=== PATIENT | male | born 1965 | race Caucasian/White ===

== ENCOUNTER → 2016-06-17 | Outpatient (CLI) | payer MEDICARE, BC ==
[2016-06-17 15:56] VITALS: BP 117/74; PULSE 68; RESP 16; TEMP 98.2; BMI 33.0
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
== END | disposition home or self-care (01) ==
LOC: BARWHC3 15:05
PROVIDERS: ATTEND Surgery
DX: Z71.3 Dietary counseling and surveillance (principal); E66.01 Morbid (severe) obesity due to excess calories; Z68.33 Body mass index [BMI] 33.0-33.9, adult; K21.9 Gastro-esophageal reflux disease without esophagitis; Z48.815 Encounter for surgical aftercare following surgery on the digestive system
CPT/HCPCS: 97803; G0463; 99211

== ENCOUNTER → 2016-09-02 | Outpatient (CLI) | payer MEDICARE ==
[2016-09-02 14:09] VITALS: BP 115/70; PULSE 56; RESP 16; TEMP 98.3; BMI 31.6
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
== END ==
LOC: BARWHC3 13:16
PROVIDERS: ATTEND Surgery
DX: Z48.815 Encounter for surgical aftercare following surgery on the digestive system (principal); E66.01 Morbid (severe) obesity due to excess calories; Z98.84 Bariatric surgery status; Z87.891 Personal history of nicotine dependence
CPT/HCPCS: 97803; G0463; 99211

== ENCOUNTER 2017-06-27 08:40 | Day surgery (SDC) | payer MEDICARE ==
[2017-06-24 15:50] VITALS: BMI 29.5
[~2017-06-27 08:40] MED LIST: LACTATED RINGERS 1,000 ML IV SCH; LIDOCAINE 1% INJ 10MG/ML (20 ML MDV) ONE; PROPOFOL 10 MG/ML 20 ML VIAL IV ONE
[2017-06-27 08:48] VITALS: TEMP 97
[2017-06-27] MEDS ORDERED: PROPOFOL 10 MG/ML 20 ML VIAL IV ONE (09:02)
[2017-06-27] MEDS ORDERED: LIDOCAINE 1% INJ 10MG/ML (20 ML MDV) ONE (09:02)
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
--- NOTE | 2017-06-27 09:24 | P.OP ---
Date of Procedure: 06/27/17 Preoperative Diagnosis: Dysphagia Postoperative Diagnosis: Mild antral gastritis Small hiatal hernia mild esophagitis Procedure(s) Performed: EGD Anesthesia: MAC Surgeon: Edwin Grady Pathology: other (Antrum, esophagus) Condition: stable Disposition: PACU Description of Procedure: The patient's placed on the endoscopy table in the lateral position. He received IV sedation. The gastroscope placed oropharynx and passed in the esophagus into the stomach. Scope was then placed through the pylorus. The first and second portion of the duodenum appeared normal. Scope was then brought back the antrum this was mildly inflamed. A biopsies performed. Scope was then brought back through the gastric sleeve. There is known to any obstruction or scarring of the sleeve. At the level GE junction appeared to be a small hiatal hernia. The distal esophagus appeared to be mildly inflamed. The GE junction was at 38 cm. The proximal esophagus appeared normal. Scope was withdrawn for patient.
[2017-06-27 09:35] VITALS: RESP 18
[2017-06-27 09:45] VITALS: BP 132/70; PULSE 67
== END 2017-06-27 10:17 | disposition home or self-care (01) ==
LOC: ORWHC2ENDO 08:40
PROVIDERS: ATTEND Surgery
DX: K29.50 Unspecified chronic gastritis without bleeding (principal); K44.9 Diaphragmatic hernia without obstruction or gangrene; K21.0 Gastro-esophageal reflux disease with esophagitis; E07.9 Disorder of thyroid, unspecified; E78.5 Hyperlipidemia, unspecified; I10 Essential (primary) hypertension; Z98.84 Bariatric surgery status; J44.9 Chronic obstructive pulmonary disease, unspecified; F17.200 Nicotine dependence, unspecified, uncomplicated; M19.90 Unspecified osteoarthritis, unspecified site; G47.33 Obstructive sleep apnea (adult) (pediatric); Z99.89 Dependence on other enabling machines and devices; Z79.1 Long term (current) use of non-steroidal anti-inflammatories (NSAID); Z79.899 Other long term (current) drug therapy; Z88.8 Allergy status to other drugs, medicaments and biological substances
CPT/HCPCS: 88305; 88342; 43239; J2001; J2704

== ENCOUNTER → 2017-07-07 | Outpatient (CLI) | payer MEDICARE ==
[2017-07-07 14:21] VITALS: BMI 30.7
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
== END | disposition home or self-care (01) ==
LOC: BARWHC3 13:42
PROVIDERS: ATTEND Surgery
DX: Z48.815 Encounter for surgical aftercare following surgery on the digestive system (principal); K95.09 Other complications of gastric band procedure; K21.9 Gastro-esophageal reflux disease without esophagitis; F17.200 Nicotine dependence, unspecified, uncomplicated; J44.9 Chronic obstructive pulmonary disease, unspecified; E78.5 Hyperlipidemia, unspecified; I10 Essential (primary) hypertension; E07.9 Disorder of thyroid, unspecified; M19.90 Unspecified osteoarthritis, unspecified site; G47.30 Sleep apnea, unspecified; F31.9 Bipolar disorder, unspecified; Z99.89 Dependence on other enabling machines and devices; Z98.84 Bariatric surgery status
CPT/HCPCS: 99211

== ENCOUNTER → 2019-01-25 | Outpatient (CLI) | payer MEDICARE ==
[2019-01-25 14:20] VITALS: BP 109/72; PULSE 51; TEMP 97.2; BMI 30.7
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
[2019-01-25 15:23] LABS: HCT 43.2 % (39.0-53.0); HGB 14.2 gm/dL (13.0-17.5); MCH 31.7 pg (25.0-35.0); MCHC 32.7 g/dL (31.0-37.0); MCV 96.7 fL (80.0-100.0); Mean Platelet Volume 6.9; Platelet Count 291 k/uL (150-450); RBC 4.47 m/uL (4.30-5.90); RDW 13.1 % (11.5-15.5); WBC 5.7 k/uL (3.8-10.6)
[2019-01-26 00:41] LABS: African American GFR (CKD) 87.7 (60.0-200.0); Albumin 4.3 g/dL (3.80-4.90); Albumin/Globulin Ratio 2.26 (1.60-3.17); Anion Gap 3.7 mmol/L (4.00-12.00); BUN/Creat Ratio 14.55 Ratio (12.00-20.00); Calcium 9.5 mg/dL (8.7-10.3); Carbon Dioxide 27.3 mmol/L (21.6-31.8); Globulin 1.9 g/dL (1.6-3.3); Potassium 4.8 mmol/L (3.5-5.5); Total Bilirubin 0.3 mg/dL (0.2-1.2); Total Protein 6.2 g/dL (6.2-8.2)
[2019-01-26 01:17] LABS: Vitamin D 25 Hydroxy 18.5 ng/mL (30.0-100.0)
[2019-01-26 01:19] LABS: Folate, Serum 8.9 ng/mL
== END | disposition home or self-care (01) ==
LOC: BARWHC3 13:54
PROVIDERS: ATTEND Surgery
DX: Z48.815 Encounter for surgical aftercare following surgery on the digestive system (principal); K21.9 Gastro-esophageal reflux disease without esophagitis; E55.9 Vitamin D deficiency, unspecified; Z98.84 Bariatric surgery status; Z98.890 Other specified postprocedural states
CPT/HCPCS: 84134; 84425; 80053; 82607; 82746; 85027; 82306; 83970; 36415; G0463; 99211

== ENCOUNTER → 2019-03-22 | Outpatient (CLI) | payer MEDICARE ==
--- NOTE | 2019-03-22 14:44 | XR ---
EXAMINATION TYPE: XR chest 2V DATE OF EXAM: 03/22/2019 COMPARISON: 09/28/2018 TECHNIQUE: PA and lateral views submitted. HISTORY: Shortness of breath FINDINGS: The lungs are clear and there is no pneumothorax, pleural effusion, or focal pneumonia. Hypertrophi c change of the spine. Hyperinflation of the lungs. No overt failure. IMPRESSION: 1. No acute process.
== END | disposition home or self-care (01) ==
LOC: RADXRMAIN 14:08
PROVIDERS: ATTEND Family Medicine
DX: R06.02 Shortness of breath (principal); R09.89 Other specified symptoms and signs involving the circulatory and respiratory systems
CPT/HCPCS: 71046

== ENCOUNTER → 2019-04-12 | Outpatient (CLI) | payer MEDICARE ==
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
[2019-04-12 16:10] VITALS: BP 130/84; PULSE 56; TEMP 98.2; BMI 30.4
== END | disposition home or self-care (01) ==
LOC: BARWHC3 12:52
PROVIDERS: ATTEND Surgery
DX: Z48.815 Encounter for surgical aftercare following surgery on the digestive system (principal); K21.9 Gastro-esophageal reflux disease without esophagitis; F17.200 Nicotine dependence, unspecified, uncomplicated; Z98.84 Bariatric surgery status
CPT/HCPCS: 99211

== ENCOUNTER → 2020-12-22 | Outpatient (CLI) | payer MEDICARE ==
--- NOTE | 2020-12-22 11:05 | CT ---
EXAMINATION TYPE: CT chest w con DATE OF EXAM: 12/22/2020 COMPARISON: Chest x-ray 05/20/2019 HISTORY: Hemoptysis CT DLP: 666 mGycm Automated exposure control for dose reduction was used. TECHNIQUE: CT scan of the chest is performed with IV Contrast, patient injected with 100 ml mL of Isovue 300. M IP Images are created on CT scanner and reviewed. 3D reconstructed images are created on an [employer] workstation and reviewed. FINDINGS: LUNGS: The lungs are grossly clear, there is no concerning parenchymal mass or nodule identified. T here is no pleural effusion or pneumothorax seen. The tracheobronchial tree is patent. Biapical pleu ral thickening and paraseptal emphysematous changes involving the lung apices. MEDIASTINUM: There are no greater than 1 cm hilar or mediastinal lymph nodes. No pericardial effusi on is seen. OTHER: Postsurgical change involving the stomach. Small hiatal hernia noted. Diffuse low-attenuation throughout the liver compatible with hepatic steatosis. Hypertrophic and degenerative changes of the spine. IMPRESSION: 1. COPD with no acute process. 2. Hepatic steatosis.
== END | disposition home or self-care (01) ==
LOC: RADCTMAIN 07:58
PROVIDERS: ATTEND Internal Medicine Critical Care Medicine
DX: J44.9 Chronic obstructive pulmonary disease, unspecified (principal); K76.0 Fatty (change of) liver, not elsewhere classified
CPT/HCPCS: 71260; Q9967

== ENCOUNTER 2021-04-05 07:30 | Day surgery (SDC) | payer MEDICARE ==
[2021-04-03 10:41] VITALS: BMI 35.2
[~2021-04-05 07:30] MED LIST changes: +LIDOCAINE 1% (10MG/ML) FOR IV START INTRADERMA PRN; -LIDOCAINE 1% INJ 10MG/ML (20 ML MDV) ONE; -PROPOFOL 10 MG/ML 20 ML VIAL IV ONE
[2021-04-05 08:33] VITALS: TEMP 97.2
[2021-04-05] MEDS ORDERED: PROPOFOL 10 MG/ML 20 ML VIAL IV ONE (09:02)
[2021-04-05] MEDS ORDERED: LIDOCAINE 1% INJ 10MG/ML (20 ML MDV) ONE (09:02)
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
--- NOTE | 2021-04-05 09:27 | P.OP ---
Date of Procedure: 04/05/21 Preoperative Diagnosis: GERD Screening colonoscopy Postoperative Diagnosis: Antral gastritis Normal colonoscopy Procedure(s) Performed: EGD Colonoscopy Anesthesia: MAC Surgeon: Edwin Grady Pathology: other (Antrum) Condition: stable Disposition: PACU Description of Procedure: The patient's placed on the endoscopy table in the lateral position. He received IV sedation. Digital rectal exam was performed which revealed no abnormalities. Possible colonoscope was then placed patient anus passed throughout the entire colon. The ileocecal valve was visualized. The cecum, ascending and transverse colon appeared normal. In the descending; there is moderate diverticular changes. Scope brought back the rectum and this appeared normal. Scope withdrawn for patient. Next the gastroscope placed oropharynx passed in the esophagus and the stomach. Scope placement pylorus. The first and second portion duodenum appeared normal. Scope was brought back the antrum this. Minimal inflamed. A biopsies performed. The scope was then brought back. Patient previous gastric sleeve. There is no evidence of any obstruction or occlusion of the sleeve. The GE junction was at 40 cm the distal esophagus. Normal. The proximal esophagus AppearedNormal. Scope withdrawn for patient.
[2021-04-05 09:31] VITALS: PULSE 68
[2021-04-05 09:55] VITALS: BP 112/75; RESP 19
== END 2021-04-05 10:20 | disposition home or self-care (01) ==
LOC: ORWHC2ENDO 07:30
PROVIDERS: ATTEND Surgery
DX: Z12.11 Encounter for screening for malignant neoplasm of colon (principal); K21.9 Gastro-esophageal reflux disease without esophagitis; K29.70 Gastritis, unspecified, without bleeding; J44.9 Chronic obstructive pulmonary disease, unspecified; E78.5 Hyperlipidemia, unspecified; I10 Essential (primary) hypertension; M19.90 Unspecified osteoarthritis, unspecified site; G47.33 Obstructive sleep apnea (adult) (pediatric); E07.9 Disorder of thyroid, unspecified; G43.909 Migraine, unspecified, not intractable, without status migrainosus; F31.9 Bipolar disorder, unspecified; F41.9 Anxiety disorder, unspecified; Z98.84 Bariatric surgery status; Z98.890 Other specified postprocedural states; F17.200 Nicotine dependence, unspecified, uncomplicated; Z82.49 Family history of ischemic heart disease and other diseases of the circulatory system; Z83.2 Family history of diseases of the blood and blood-forming organs and certain disorders involving the immune mechanism; Z90.79 Acquired absence of other genital organ(s); Z79.1 Long term (current) use of non-steroidal anti-inflammatories (NSAID); Z79.890 Hormone replacement therapy; Z79.51 Long term (current) use of inhaled steroids; Z79.899 Other long term (current) drug therapy; Z88.8 Allergy status to other drugs, medicaments and biological substances
CPT/HCPCS: 88305; 43239; J2001; J2704; G0121; 45378

== ENCOUNTER → 2021-04-26 | Outpatient (CLI) | payer MEDICARE ==
--- NOTE | 2021-04-26 16:06 | NM ---
Nuclear medicine hepatobiliary scan. HISTORY: Pain. DOSAGE: The patient received 8 ounces of ensure plus and 5.2 mCi of Technetium 99m Choletec. FINDINGS: There is normal hepatic extraction. The gallbladder is seen by 25 minutes. There is bilia ry to bowel clearance by 25 minutes. Ejection fraction is 92%. IMPRESSION: 1. No evidence of cholecystitis. 2. Ejection fraction of 92% can occasionally be seen with hyperdynamic gallbladder.
== END | disposition home or self-care (01) ==
LOC: RADNMMAIN 12:42
PROVIDERS: ATTEND Surgery
DX: R10.9 Unspecified abdominal pain (principal)
CPT/HCPCS: 78227; A9537; J2805

== ENCOUNTER 2021-05-11 06:26 | Day surgery (SDC) | payer MEDICARE ==
[2021-05-09 15:57] VITALS: BMI 34.4
[~2021-05-11 06:26] MED LIST changes: +ACETAMINOPHEN TAB 500 MG TAB PO PRN; +DEXAMETHASONE SOD PHOSPHATE 4 MG/ML 1 ML VIAL IV ONE; +HEPARIN SODIUM,PORCINE/PF 5,000 UNIT/0.5 ML SYRINGE SQ PRN; -LACTATED RINGERS 1,000 ML IV SCH; -LIDOCAINE 1% (10MG/ML) FOR IV START INTRADERMA PRN; +MIDAZOLAM 2 MG/2 ML VIAL IV PRN; +ONDANSETRON 4 MG/2 ML VIAL IVP ONE; +SCOPOLAMINE 1.5MG/72HR PATCH TRANSDERM ONE
[2021-05-11] MEDS ORDERED: HYDROmorphone 0.5 MG/0.5 ML SYRINGE IVP PRN (07:00)
[2021-05-11 07:06] VITALS: TEMP 97
[2021-05-11] MEDS ORDERED: LIDOCAINE 1% (10MG/ML) FOR IV START INTRADERMA ONE (07:20)
[2021-05-11] MEDS: LACTATED RINGERS 1,000 ML IV SCH ×2 (07:20→07:56)
[2021-05-11] MEDS ORDERED: PROPOFOL 10 MG/ML 20 ML VIAL IV ONE (07:55)
[2021-05-11] MEDS ORDERED: LIDOCAINE 1% INJ 10MG/ML (20 ML MDV) ONE (07:55)
[2021-05-11] MEDS ORDERED: ROCURONIUM 10 MG/ML (5 ML VIAL) IV ONE (07:55)
[2021-05-11] MEDS ORDERED: ALBUTEROL HFA INHALER INHALATION ONE (07:55)
[2021-05-11] MEDS ORDERED: .fentaNYL (PF) 50 MCG/ML AMP ONE (07:55)
[2021-05-11] MEDS ORDERED: GLYCOPYRROLATE 0.2 MG/ML 2 ML VIAL ONE (07:55)
[2021-05-11] MEDS ORDERED: NEOSTIGMINE 1 MG/ML 10 ML VIAL ONE (07:55)
[2021-05-11] MEDS ORDERED: BUPIVACAIN-EPI 0.25%-1:200,000 30 ML VIAL SQ ONE ×2 (08:18→08:25)
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
--- NOTE | 2021-05-11 08:51 | P.OP ---
Date of Procedure: 05/11/21 Preoperative Diagnosis: Chronic cholecystitis Postoperative Diagnosis: Chronic cholecystitis Procedure(s) Performed: Laparoscopic cholecystectomy Anesthesia: JOSHUA Surgeon: Edwin Grady Estimated Blood Loss (ml): 5 Pathology: other (Gallbladder) Condition: stable Disposition: PACU Description of Procedure: The patient was placed on the operating table. The patient received a general endotracheal tube anesthesia. The patients abdomen was prepped and draped in the usual sterile fashion. Through an infraumbilical stab incision, the fascia of the anterior abdominal wall was grasped with a pair of Kochers and then the Veress needle was placed in the peritoneal cavity. Position of the Veress needle was confirmed with positive drop test. The abdomen was then insufflated. After adequate insufflation, the 10 mm trocar was placed in the peritoneal cavity. Following this the laparoscope was placed in the peritoneal cavity. The patient was placed in the head-up, right side up position and then a 5 mm trocar was placed in the right lateral and right subcostal position under direct visualization. A 8 mm trocar was placed in the epigastric position. The gallbladder was grasped in the fundus and infundibulum. Traction on the gallbladder was placed in the lateral and the cephalad positions. The triangle of Calot was visualized.. The cystic duct was bluntly dissected until the union of the cystic duct and common bile duct was seen. A critical view of safety was achieved. The cystic duct was then divided and sealed with the Harmonic scissors. A PDS Endoloop was then placed throughout the cystic duct stump. The cystic artery divided and sealed with the Harmonic scissors. The gallbladder was then removed from the liver bed using Harmonic scissors. The gallbladder was then extracted through the epigastric port site. Operative field was checked for any bleeding spots and Harmonic scissors was used to coagulate the liver bed. The abdomen was irrigated. The trocars were removed. The skin was closed using interrupted 3-0 Vicryl suture. Dermabond dressing were applied. The patient tolerated the procedure well.
[2021-05-11] MEDS ORDERED: LACTATED RINGERS 1,000 ML IV ONE ×2 (09:22)
[2021-05-11 10:35] VITALS: RESP 16
[2021-05-11 11:23] VITALS: BP 123/76; PULSE 67
== END 2021-05-11 11:32 | disposition home or self-care (01) ==
LOC: OR 06:26
PROVIDERS: ATTEND Surgery
DX: K81.1 Chronic cholecystitis (principal)
CPT/HCPCS: 47562; 88304; J1100; J2710; J0690; J2405; J2001; J3010; J2704; J1644

== ENCOUNTER → 2021-08-08 | Outpatient (CLI) | payer MEDICARE ==
--- NOTE | 2021-08-08 15:01 | P.PN ---
Progress Note - Text Progress Note Date: 08/08/21 Patient registered under wrong physician.
[2021-08-08 18:58] LABS: HCT 44.5 % (39.6-50.0); HGB 13.8 g/dL (13.0-17.0); MCH 31.2 pg (27.0-32.0); MCV 100.7 fL (80.0-97.0); Mean Platelet Volume 9.4 fL (9.5-12.2); NRBC Per 100 WBC 0 /100 WBCS (0.0-0.0); Platelet Count 279 X 10*3/uL (140-440); RBC 4.42 X 10*6/uL (4.40-5.60); RDW 13.9 % (11.5-14.5); WBC 8.18 X 10*3/uL (4.50-10.00)
[2021-08-08 19:29] LABS: % Iron Saturation 21.45 (15.00-50.00); African American GFR (CKD) 86.5 (60.0-200.0); Albumin 4.2 g/dL (3.8-4.9); Albumin/Globulin Ratio 1.83 (1.60-3.17); Anion Gap 11.3 mmol/L (10.00-18.00); BUN/Creat Ratio 12.27 Ratio (12.00-20.00); Blood Urea Nitrogen 13.5 mg/dL (9.0-27.0); Calcium 9.8 mg/dL (8.7-10.3); Carbon Dioxide 23.7 mmol/L (20.0-27.5); Ferritin 55.7 ng/mL (22.0-322.0); Globulin 2.3 g/dL (1.6-3.3); Magnesium 2.1 mg/dL (1.5-2.4); Non-African American GFR(CKD) 74.6 (60.0-200.0); Potassium 4.9 mmol/L (3.5-5.5); Total Bilirubin 0.2 mg/dL (0.30-1.20); Total Protein 6.5 g/dL (6.2-8.2)
[2021-08-08 21:59] LABS: Folate, Serum 5.7 ng/mL (4.40-31.00)
[2021-08-09 13:09] LABS: Zinc, Serum 90 ug/dL (60-130)
[2021-08-10 06:48] LABS: Vitamin A 79 ug/dL (38-106)
[2021-08-10 17:17] LABS: Selenium 133 mcg/L (63-160)
[2021-08-12 13:17] LABS: Vit B1(Thiamine) 72 ug/L (38-122)
== END | disposition home or self-care (01) ==
LOC: BARWHC3 14:04
PROVIDERS: ATTEND Surgery Plastic and Reconstructive Surgery
DX: E66.01 Morbid (severe) obesity due to excess calories (principal); E44.0 Moderate protein-calorie malnutrition; E55.9 Vitamin D deficiency, unspecified; T56.894A Toxic effect of other metals, undetermined, initial encounter; D50.8 Other iron deficiency anemias
CPT/HCPCS: 36415; 80053; 82306; 82607; 82728; 82746; 83540; 83550; 83735; 84255; 84425; 84443; 84590; 84630; 85027

== ENCOUNTER → 2022-03-28 | Outpatient (CLI) | payer MEDICARE ==
--- NOTE | 2022-03-28 10:02 | FL ---
EXAMINATION TYPE: FL barium swallow DATE OF EXAM: 03/28/2022 CLINICAL HISTORY: Dysphagia. Food and water getting stock causing vomiting. History of gastric sleeve surgery 6 years ago. TECHNIQUE: A single contrast esophagram is performed utilizing barium. A total of 53 seconds of flu oroscopic time was utilized during procedure and 42 images obtained COMPARISON: Prior upper GI study January 09, 2016 FINDINGS: The esophagus shows satisfactory motility. There is pooling of contrast in the esophagus in itially before some delayed emptying into fixed hiatal hernia. There are then some abnormal secondary and tertiary contractions with delayed emptying through proximal anastomosis into the gastric sleeve . Gastric sleeve appears within normal limits. There is again mild to moderate delayed emptying throu gh distal anastomosis into duodenal sweep. No extravasation of contrast to suggest leak. IMPRESSION: Some esophageal dysmotility. Fixed small hiatal hernia proximal to the proximal anastomos is with mild delayed emptying at this level. Mild to moderate delayed emptying at proximal and distal anastomosis of gastric sleeve also noted.
== END | disposition home or self-care (01) ==
LOC: RADUSWWP 08:53
PROVIDERS: ATTEND Family Medicine
DX: K22.4 Dyskinesia of esophagus (principal); K44.9 Diaphragmatic hernia without obstruction or gangrene
CPT/HCPCS: 74220

== ENCOUNTER → 2022-05-20 | Outpatient (CLI) | payer MEDICARE ==
--- NOTE | 2022-05-20 13:59 | MR ---
EXAMINATION TYPE: MR knee LT wo con DATE OF EXAM: 05/20/2022 COMPARISON: None HISTORY: PAIN IN LEFT KNEE TECHNIQUE: Multiplanar, multisequence imaging of the left knee is performed without IV contrast. FINDINGS: MEDIAL MENISCUS: Anterior and posterior horns are intact without tear. Myxoid degeneration posterior horn medial meniscus. LATERAL MENISCUS: Anterior and posterior horns are intact without tear. CRUCIATE LIGAMENTS: The anterior and posterior cruciate ligaments are intact and unremarkable. COLLATERAL LIGAMENTS: The medial collateral ligament and lateral collateral ligament complex are inta ct and unremarkable. EXTENSOR MECHANISM: Visualized quadriceps and patellar tendons are intact. EFFUSION: No significant suprapatellar joint effusion. POPLITEAL CYST: No popliteal/segovia cyst. TRICOMPARTMENT SPACES: Mild narrowing patellofemoral joint space and medial tibiofemoral joint space. CARTILAGE: Intact BONE MARROW SIGNAL: No focal abnormal marrow signal is appreciated. OTHER: No additional significant abnormality is appreciated. IMPRESSION: 1. Mild changes of osteoarthritis. 2. Myxoid degeneration posterior horn medial meniscus without evidence for tear.
== END | disposition home or self-care (01) ==
LOC: RADMRIMAIN 12:59
PROVIDERS: ATTEND Orthopaedic Surgery
DX: M17.12 Unilateral primary osteoarthritis, left knee (principal)

== ENCOUNTER → 2022-06-24 | Outpatient (CLI) | payer MEDICARE ==
--- NOTE | 2022-06-24 14:28 | MR ---
INDICATION: Patient age:Male; 57 years old; Reason for study: M25.561 PAIN IN RIGHT KNEE; PHH. COMPARISON: Right knee radiograph 04/09/2022. TECHNIQUE: Multi planar, multi sequence imaging was performed of the right knee without demonstratio n of gadolinium. FINDINGS: MENISCI: Longitudinal tear involving the body of the lateral meniscus extending to the tibiotalar art icular surface. No medial meniscus tear. Myxoid degeneration demonstrated within the body of the medi al meniscus. LIGAMENTS AND TENDONS: The anterior cruciate ligament, posterior cruciate ligament, medial collatera l ligament, fibular collateral ligament, and patellar retinacula are within normal limits. The ackerman lar tendon, quadriceps tendon, IT band, pes anserinus tendons, semimembranosus tendon, popliteus tend on, and biceps femoris tendon are all within normal limits. OSSEOUS STRUCTURES AND CARTILAGE: The cartilage of the patellofemoral joint and medial tibiofemoral joint demonstrates areas of heterogeneous signal. There is some fissuring along the anterior aspect o f the medial patellofemoral femoral joint space cartilage with subchondral cystic formation. The cart ilage of the lateral knee joint compartment is intact. The bone marrow signal intensity is within no rmal limits. A trace suprapatellar joint effusion is present. Lateral right knee subcutaneous edema. IMPRESSION: 1. Lateral meniscal body tear with myxoid degeneration of the medial meniscus. 2. Mild chondromalacia of the patellofemoral and medial tibiofemoral joints.
== END | disposition home or self-care (01) ==
LOC: RADMRIMAIN 11:20
PROVIDERS: ATTEND Orthopaedic Surgery
DX: M23.300 Other meniscus derangements, unspecified lateral meniscus, right knee (principal); M23.303 Other meniscus derangements, unspecified medial meniscus, right knee; M22.41 Chondromalacia patellae, right knee

== ENCOUNTER 2022-08-29 08:42 | Day surgery (SDC) | payer MEDICARE ==
[~2022-08-29 08:42] MED LIST changes: -ACETAMINOPHEN TAB 500 MG TAB PO PRN; -DEXAMETHASONE SOD PHOSPHATE 4 MG/ML 1 ML VIAL IV ONE; -HEPARIN SODIUM,PORCINE/PF 5,000 UNIT/0.5 ML SYRINGE SQ PRN; +LACTATED RINGERS 1,000 ML IV SCH; +LIDOCAINE 1% (10MG/ML) FOR IV START INTRADERMA PRN; -MIDAZOLAM 2 MG/2 ML VIAL IV PRN; -ONDANSETRON 4 MG/2 ML VIAL IVP ONE; -SCOPOLAMINE 1.5MG/72HR PATCH TRANSDERM ONE
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
[2022-08-29 09:16] VITALS: RESP 16; TEMP 98
[2022-08-29] MEDS ORDERED: PROPOFOL 10 MG/ML 20 ML VIAL IV ONE (09:25)
[2022-08-29] MEDS ORDERED: LIDOCAINE 2% INJ 20 MG/ML (2 ML VIAL) ONE (09:25)
[2022-08-29 10:13] VITALS: BP 108/76; PULSE 50
--- NOTE | 2022-08-29 11:21 | P.PCN ---
Date of Procedure: 08/29/22 Description of Procedure: PREOPERATIVE DIAGNOSIS: Dysphagia. Gastroesophageal reflux disease. s/p sleeve gastrectomy. POSTOPERATIVE DIAGNOSIS: Dysphagia. Gastroesophageal reflux disease. s/p vertical sleeve gastrectomy. Esophageal dysmotility Diaphragmatic hiatal hernia Gastritis OPERATION: Esophagogastroduodenoscopy with rigid dilation, 57-[place] Esophagogastroduodenoscopy with cold forceps biopsy SURGEON: Michelle Nam MD ANESTHESIA: MAC. INDICATIONS: The patient is a 57-year-old male who presents with a history of dysphagia, sleeve gastrectomy including gastroesophageal reflux disease. Benefits and risks of the procedure were described. Informed consent was obtained. DESCRIPTION: The patient was brought into the endoscopy suite and laid in the left lateral decubitus position. After a timeout was confirmed, the procedure was initiated. An Olympus gastroscope was passed along the posterior oropharynx down to the distal esophagus where the squamocolumnar junction was remarkable for reflux esophagitis. Multiple tertiary esophageal contractions were identified consistent with esophageal dysmotility. No large hiatal hernias were identified. The gastric pouch was entered. No gastric strictures were identified along her sleeve. The antrum was unremarkable. The scope was brianna reji as a guidewire was placed. A guidewire followed by 57-[place] with rigid dilator for 2 minutes. Dilators were removed with guidewire. The upper scope was reinserted. The scope was easily passed without resistance consistent with her esophageal dysmotility. The mucosa was intact. No full-thickness injury was encountered. The GI tract was desufflated. The patient tolerated the procedure well. FINDINGS: No strictures identified. Tertiary esophageal contractions present with esophageal dysmotility dilated Diaphragmatic hiatus at 44 cm Dilated gastric pouch for sleeve gastrectomy identified Diaphragmatic hiatal hernia, 4 cm Squamocolumnar junction at 40 cm Gastritis with biopsies obtained Duodenitis with biopsies obtained RECOMMENDATIONS: Upper endoscopy as needed Plan - Discharge Summary Discharge Rx Participant: No New Discharge Prescriptions: Continue lamoTRIgine [LaMICtal] 100 mg PO DAILY clonazePAM [KlonoPIN] 1 mg PO TID PRN PRN Reason: Anxiety [place] Carbonate ER [Lithobid] 450 mg PO BID OLANZapine [ZyPREXA] 5 mg PO HS Citalopram Hydrobromide [CeleXA] 20 mg PO DAILY@1700 Ipratropium-Albuterol Nebulize [Duoneb 0.5 mg-3 mg/3 ml Soln] 3 ml INHALATION QID PRN PRN Reason: COPD Simvastatin [Zocor] 20 mg PO HS Meloxicam [Mobic] 15 mg PO DAILY Levothyroxine Sodium [Synthroid] 137 mcg PO QAM Fluticasone/Umeclidin/Vilanter [Trelegy Ellipta 100-62.5-25] 1 inhalation INHALATION DAILY Omeprazole [PriLOSEC] 40 mg PO HS HYDROcodone/APAP 5-325MG [[place] 5-325] 1 tab PO Q6HR PRN #12 tab PRN Reason: Pain Albuterol Inhaler [Ventolin Hfa Inhaler] 2 puff INHALATION RT-QID PRN PRN Reason: Shortness Of Breath Ascorbic Acid [Vitamin C] 500 mg PO HS PRN PRN Reason: Cough Acetaminophen Tab [Tylenol] 650 mg PO Q6H #30 tab Albuterol Nebulized [Ventolin Nebulized] 2.5 mg INHALATION Q6H Discharge Medication List Citalopram Hydrobromide [CeleXA] 20 mg PO DAILY@1700 12/14/15 [History] [place] Carbonate ER [Lithobid] 450 mg PO BID 12/14/15 [History] OLANZapine [ZyPREXA] 5 mg PO HS 12/14/15 [History] clonazePAM [KlonoPIN] 1 mg PO TID PRN 12/14/15 [History] lamoTRIgine [LaMICtal] 100 mg PO DAILY 12/14/15 [History] Ipratropium-Albuterol Nebulize [Duoneb 0.5 mg-3 mg/3 ml Soln] 3 ml INHALATION QID PRN 12/29/15 [History] Levothyroxine Sodium [Synthroid] 137 mcg PO QAM 06/24/17 [History] Meloxicam [Mobic] 15 mg PO DAILY 06/24/17 [History] Simvastatin [Zocor] 20 mg PO HS 06/24/17 [History] Albuterol Inhaler [Ventolin Hfa Inhaler] 2 puff INHALATION RT-QID PRN 04/03/21 [History] Ascorbic Acid [Vitamin C] 500 mg PO HS PRN 04/03/21 [History] Fluticasone/Umeclidin/Vilanter [Trelegy Ellipta 100-62.5-25] 1 inhalation INHALATION DAILY 04/03/21 [History] Omeprazole [PriLOSEC] 40 mg PO HS 04/03/21 [History] Acetaminophen Tab [Tylenol] 650 mg PO Q6H #30 tab 05/11/21 [Rx] HYDROcodone/APAP 5-325MG [[place] 5-325] 1 tab PO Q6HR PRN #12 tab 07/31/22 [Rx] Albuterol Nebulized [Ventolin Nebulized] 2.5 mg INHALATION Q6H 08/27/22 [History] Follow up [facility]ment(s[facility]Ref[facility] [place] [facility] 10[facility]02/22 3:00 pm Patient Instructions/Handouts: *Surgery [facility] - (Anesthesia) Endoscopy Discharge Instructions, Hiatal Hernia (DC), Upper Endoscopy (DC), Esophageal Dilation (GEN) Activity/Diet/Wound Care/Special Instructions: Diet as tolerated Discharge Disposition: HOME SELF-CARE
== END 2022-08-29 11:09 | disposition home or self-care (01) ==
LOC: ORWHC2ENDO 08:42
PROVIDERS: ATTEND Surgery Plastic and Reconstructive Surgery
DX: K21.9 Gastro-esophageal reflux disease without esophagitis (principal); K22.4 Dyskinesia of esophagus; K44.9 Diaphragmatic hernia without obstruction or gangrene; K29.70 Gastritis, unspecified, without bleeding; J44.9 Chronic obstructive pulmonary disease, unspecified; E78.5 Hyperlipidemia, unspecified; I10 Essential (primary) hypertension; M19.90 Unspecified osteoarthritis, unspecified site; G47.30 Sleep apnea, unspecified; F17.200 Nicotine dependence, unspecified, uncomplicated; Z90.49 Acquired absence of other specified parts of digestive tract; Z90.79 Acquired absence of other genital organ(s); Z79.899 Other long term (current) drug therapy
CPT/HCPCS: 88305; 43239; 43248; J2704; J2001; 43249

== ENCOUNTER → 2022-10-02 | Outpatient (CLI) | payer MEDICARE ==
[2022-10-02 16:04] VITALS: BP 123/81; PULSE 54; TEMP 98; BMI 31.3
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
== END ==
LOC: BARWHC3 14:50
PROVIDERS: ATTEND Surgery Plastic and Reconstructive Surgery
DX: E66.01 Morbid (severe) obesity due to excess calories (principal); J44.9 Chronic obstructive pulmonary disease, unspecified; K21.9 Gastro-esophageal reflux disease without esophagitis; E78.5 Hyperlipidemia, unspecified; I10 Essential (primary) hypertension; M19.90 Unspecified osteoarthritis, unspecified site; F17.200 Nicotine dependence, unspecified, uncomplicated; Z88.8 Allergy status to other drugs, medicaments and biological substances
CPT/HCPCS: 99211

== ENCOUNTER → 2022-12-20 | Outpatient (CLI) | payer MEDICARE ==
[2022-12-20 20:07] LABS: Basophils # (A) 0.04 X 10*3/uL (0.00-0.10); Basophils % (A) 0.5 %; Eosinophils # (A) 0.06 X 10*3/uL (0.04-0.35); Eosinophils % (A) 0.8 %; HCT 45.7 % (39.6-50.0); HGB 14.1 d/dL (12.0-15.0); Lymphocytes # (A) 0.59 X 10*3/uL (0.90-5.00); Lymphocytes % (A) 7.5 %; MCH 31.8 pg (27.0-32.0); MCHC 30.9 d/dL (32.0-37.0); MCV 102.9 FL (80.0-97.0); Mean Platelet Volume 9.7 FL (9.5-12.2); Monocytes # (A) 0.22 X 10*3/uL (0.20-1.00); Monocytes % (A) 2.8 %; NRBC Per 100 WBC 0 X 10*3/uL (0.00-0.01); Neutrophils # (A) 6.96 X 10*3/uL (1.80-7.70); Neutrophils % (A) 88.3 %; Platelet Count 327 X 10*3/uL (140-440); RBC 4.44 X 10*6/uL (4.40-5.60); RDW 14.1 % (11.5-14.5); WBC 7.88 X 10*3/uL (4.50-10.00)
[2022-12-20 20:16] LABS: ALT 23 U/L (10-49); AST 17 U/L (14-35); Albumin 4.3 d/dL (3.8-4.9); Albumin/Globulin Ratio 1.87 Ratio (1.60-3.17); Alkaline Phosphatase 104 U/L (41-126); BUN/Creat Ratio 16.54 Ratio (12.00-20.00); Blood Urea Nitrogen 21.5 mg/dL (9.0-27.0); C Reactive Protein <0.30 mg/dL (0.00-0.80); Calcium 9.8 mg/dL (8.7-10.3); Carbon Dioxide 23.4 mmol/L (21.6-31.8); Chloride 106 mmol/L (96-109); Chol/HDL Ratio 3.32 Ratio; Globulin 2.3 d/dL (1.6-3.3); Glucose 122 mg/dL (70-110); LDL Cholesterol,Calculated 85.4 mg/dL (0.0-131.0); Potassium 5.1 mmol/L (3.5-5.5); Rheumatoid Factor, Qnt 127 IU/mL (0-15); Sodium 138 mmol/L (135-145); T4, Free (Free Thyroxine) 1.46 ng/dL (0.80-1.80); Total Bilirubin 0.2 mg/dL (0.3-1.2); Total Protein 6.6 d/dL (6.2-8.2)
[2022-12-20 22:17] LABS: Erythrocyte Sedimentation Rate 13 mm/Hr (0-20)
[2022-12-20 23:47] LABS: Prostate Specific Antigen 0.05 ng/mL (0.000-3.500)
== END | disposition home or self-care (01) ==
LOC: LABWHC1 12:36
PROVIDERS: ATTEND Orthopaedic Surgery
DX: Z01.812 Encounter for preprocedural laboratory examination (principal); M23.92 Unspecified internal derangement of left knee
CPT/HCPCS: 36415; 80053; 80061; 80178; 84153; 84439; 84443; 85025; 85652; 86038; 86140; 86431

== ENCOUNTER → 2022-12-20 | Outpatient (CLI) | payer MEDICARE | END | disposition home or self-care (01) | LOC: LABWHC1 12:39 | PROVIDERS: ATTEND Family Medicine | DX: Z53.9 Procedure and treatment not carried out, unspecified reason (principal) ==

== ENCOUNTER 2023-01-01 10:21 | Day surgery (SDC) | payer MEDICARE ==
[2022-12-27 10:36] VITALS: BMI 31.3
--- NOTE | 2022-12-31 14:34 | HP ---
HISTORY AND PHYSICAL DATE OF SCHEDULED SURGERY: 01/01/2023 HISTORY OF PRESENT ILLNESS: Aron Campbell is a 57-year-old patient seen with progressive left knee pain. We discussed options for treatment. The patient elected to proceed with left knee arthroscopy. Consent regarding procedure obtained. PAST MEDICAL HISTORY: Hypothyroidism, gastroesophageal reflux disease, hyperlipidemia. PAST SURGICAL HISTORY: Right knee arthroscopy. DAILY MEDICATIONS: 1. Klonopin. 2. Levothyroxine. 3. Meloxicam. 4. Omeprazole. 5. Simvastatin. 6. Tylenol. 7. Tramadol. ALLERGIES: None. SOCIAL HISTORY: He denies tobacco use. PHYSICAL EVALUATION OF THE LEFT KNEE: Left knee range of motion is -4/5 to 120 degrees. Mild effusion. Tenderness medial joint line. Positive medial Sven's. Ligaments stable. Hip rotation without pain. Distal neurovascular exam is intact. RADIOGRAPHS: Right knee radiographs revealed moderate osteoarthritic changes. MRI of the left knee revealed an abnormal signal throughout the medial meniscus. IMPRESSION: 1. Internal derangement of left knee with medial meniscal tear. 2. Hypertension. 3. Hyperlipidemia. 4. Hypothyroidism. PLAN: Left knee arthroscopy with partial medial meniscectomy and debridement. MMODL / IJN: [id number] /
[~2023-01-01 10:21] MED LIST changes: +DEXAMETHASONE SOD PHOSPHATE 4 MG/ML 1 ML VIAL IV ONE; +HYDROmorphone 0.5 MG/0.5 ML SYRINGE IVP PRN; +ONDANSETRON 4 MG/2 ML VIAL IVP ONE; +SCOPOLAMINE 1 MG/72 HR PATCH TRANSDERM ONE; +droPERidol 5 MG/2 ML VIAL IVP ONE
[2023-01-01 10:52] LABS: Glucose,Whole Blood 123 mg/dL (70-110)
[2023-01-01] MEDS ORDERED: PROPOFOL 10 MG/ML 20 ML VIAL IV ONE (11:31)
[2023-01-01] MEDS ORDERED: LIDOCAINE 2% INJ 20 MG/ML (2 ML VIAL) ONE (11:31)
[2023-01-01] MEDS ORDERED: fentaNYL (PF) 50 MCG/ML 2 ML AMP ONE (11:31)
[2023-01-01] MEDS ORDERED: BUPIVACAINE (PF) 0.25% 30 ML VIAL SQ ONE ×2 (11:52→12:00)
--- NOTE | 2023-01-01 12:14 | P.OP ---
Date of Procedure: 01/01/23 Preoperative Diagnosis: Internal derangement left knee Postoperative Diagnosis: 1. Tear medial and lateral meniscus left knee 2. Grade 3/4 chondromalacia medial femoral condyle left knee 3. Reactive synovitis medial, lateral and suprapatellar compartments left knee Procedure(s) Performed: 1. Arthroscopic partial medial and lateral meniscectomy left knee 2. Arthroscopic microfracture medial femoral condyle left knee 3. Arthroscopic partial synovectomy medial, lateral and suprapatellar compartments left knee 4. Arthroscopic chondroplasty medial femoral condyle left knee Anesthesia: RONAA, local Surgeon: Paul Knutson Estimated Blood Loss (ml): 7 Pathology: none sent Condition: stable Disposition: PACU Indications for Procedure: 57-year-old gentleman seen with progressive left knee pain. After having treatment options discussed, he elected to proceed with arthroscopy. Operative Findings: See description of procedure Description of Procedure: Patient was taken to the operative suite. Patient underwent a general anesthetic by the department of anesthesia. Patient was given preoperative antibiotics. The left lower extremity was placed in a well-padded arthroscopic leg mejia. The left leg was prepped and draped in the normal sterile orthopedic fashion. A lateral parapatellar and suprapatellar incision was made. Trochars were inserted. Arthroscopy was initiated. Suprapatellar pouch revealed diffuse thick reactive synovitis. The patellofemoral joint appeared to articulate congruently. There was grade 1 chondromalacia of the patella without significant osteochondral tears. The scope was guided into the medial gutter. No loose bodies or plica were identified. The scope was then guided into the medial compartment. A medial parapatellar incision was made. Trocar inserted followed by probe. There was a radial tear involving the anterior horn of the medial meniscus along with thick reactive synovitis. The mid body and posterior horns were stable. There were areas of grade 2/3 chondromalacia medial femoral condyle with some diffuse osteochondral flap tears. I performed a partial synovectomy. I performed a partial meniscectomy debriding out that anterior horn meniscal tear. I performed a chondroplasty of the medial femoral condyle getting down to stable osteochondral tissue. I did note grade 3 chondral malacia diffuse along the medial femoral condyle with one small area measuring less than a centimeter of right 4 chondromalacia with exposed bone. I introduced a microfracture awl and performed a microfracture to the area of exposed bone penetrating the bone with resultant bleeding at the microfracture site. The residual meniscus was stable. There was good decompression of synovitis. The residual osteochondral surface was stable. Scope and probe were then guided into the intercondylar notch. Cruciates were identified, probed and found to be stable. The scope and probe were then guided into lateral compartment. There was a radial tear involving the midbody lateral meniscus. There was thick reactive synovitis anteriorly. He were grade 1 chondromalacia changes throughout the lateral compartment with no tears. I performed a partial lateral meniscectomy getting down to stable meniscal tissue. I performed a partial synovectomy decompressing the reactive synovitis. The residual meniscus was stable. There was good decompression of the synovitis. The scope was in guided back into the suprapatellar compartment. I introduced a motorized shaver into the suprapatellar compartment. I performed a partial synovectomy decompressing the reactive synovitis throughout the suprapatellar compartment. The shaver was now removed. There was good decompression of synovitis. I took one more look around the entire knee, no residual debris. Instruments were now removed from the joint. The joint was infiltrated with .25% Marcaine. Steri- Strips were applied to the portal sites. Sterile dressings were applied. The patient was placed into a YONNY hose. No tourniquet was utilized. The patient was awakened, transferred to a bed and taken to recovery stable satisfactory condition.
[2023-01-01 12:27] VITALS: TEMP 97.4
[2023-01-01 13:57] VITALS: BP 115/70; PULSE 60; RESP 18
== END 2023-01-01 14:24 | disposition home or self-care (01) ==
LOC: OR 10:21
PROVIDERS: ATTEND Orthopaedic Surgery
DX: S83.282A Other tear of lateral meniscus, current injury, left knee, initial encounter (principal); M94.262 Chondromalacia, left knee; M65.862 Other synovitis and tenosynovitis, left lower leg; I10 Essential (primary) hypertension; E03.9 Hypothyroidism, unspecified; E78.5 Hyperlipidemia, unspecified; K21.9 Gastro-esophageal reflux disease without esophagitis; Z79.899 Other long term (current) drug therapy
CPT/HCPCS: 29880; J1100; J0690; J2405; J3010; J2704; J2001

== ENCOUNTER → 2023-02-12 | Outpatient (CLI) | payer MEDICARE ==
--- NOTE | 2023-02-12 19:57 | CTL ---
EXAMINATION TYPE: CT Low Dose Lung DATE OF EXAM ORDERED: 02/12/2023 HISTORY: Z12.2 ENCNTR SCREEN FOR MALIGNANT NEOPLASM F12.210. Current smoker, 20 pack year history. Nelli ng cancer screening CT DLP: [address] CTDI: 2.79 mGy Automated exposure control for dose reduction was used. SCREENING VISIT: First screening visit COMPARISON: CT chest 12/22/2020 TECHNIQUE: Low dose computed tomography scan was performed through the chest at 1 mm thick sections a nd reconstructed images in multiple planes at 1 mm and [address] DIAGNOSTIC QUALITY: Satisfactory FINDINGS: LUNG NODULES: No clinically significant pulmonary nodules greater than 5 mm. Intrafissural lymph node measuring 3 mm along the right minor fissure. LUNGS: COPD: Severity: Mild Fibrosis: Severity: Minimal Lymph nodes: None Other findings: Elevation of the right hemidiaphragm. Diffuse bronchial wall thickening which can be seen with chronic asthma/bronchitis. RIGHT PLEURAL SPACE: Effusion: None Calcification: None Thickening: None Pneumothorax: None LEFT PLEURAL SPACE: Effusion: None Calcification: None Thickening: None Pneumothorax: None HEART: Heart Size: Normal Coronary Calcification: None Pericardial Effusion: None OTHER FINDINGS: Upper abdomen: Small hiatal hernia with postsurgical changes from gastric sleeve. Postcholecystectomy changes. Diffuse low-attenuation of the liver compatible with hepatic steatosis. Bony thorax: No acute processes. Mild degenerative disc disease of the thoracic spine. Supraclavicular region: None Other: Right gynecomastia. IMPRESSION: No clinically significant pulmonary nodule greater than [address] LUNG RAD AND CT CHEST RECOMMENDATION: Lung-Rad 2 Benign Appearance or Behavior: Continue annual sc reening with LDCT in 12 months. S Modifier (other clinically significant findings): None
== END | disposition home or self-care (01) ==
LOC: RADCTMAIN 16:40
PROVIDERS: ATTEND Internal Medicine Rheumatology
DX: Z12.2 Encounter for screening for malignant neoplasm of respiratory organs (principal); F17.210 Nicotine dependence, cigarettes, uncomplicated
CPT/HCPCS: 71271

== ENCOUNTER → 2023-06-11 | Outpatient (CLI) | payer MEDICARE ==
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
[2023-06-11 15:43] VITALS: BP 135/84; PULSE 65; TEMP 97.7; BMI 30.7
== END ==
LOC: BARWHC3 14:52
PROVIDERS: ATTEND Surgery Plastic and Reconstructive Surgery
DX: E66.01 Morbid (severe) obesity due to excess calories (principal); J44.9 Chronic obstructive pulmonary disease, unspecified; G43.909 Migraine, unspecified, not intractable, without status migrainosus; F32.A Depression, unspecified; G40.909 Epilepsy, unspecified, not intractable, without status epilepticus; E03.9 Hypothyroidism, unspecified; E78.5 Hyperlipidemia, unspecified; K21.9 Gastro-esophageal reflux disease without esophagitis; K44.9 Diaphragmatic hernia without obstruction or gangrene; T75.3XXA Motion sickness, initial encounter; M47.816 Spondylosis without myelopathy or radiculopathy, lumbar region; G47.33 Obstructive sleep apnea (adult) (pediatric); R10.11 Right upper quadrant pain; R10.12 Left upper quadrant pain; F17.200 Nicotine dependence, unspecified, uncomplicated; Z68.30 Body mass index [BMI] 30.0-30.9, adult; Z88.8 Allergy status to other drugs, medicaments and biological substances; Z79.899 Other long term (current) drug therapy; Z79.890 Hormone replacement therapy
CPT/HCPCS: 99211

== ENCOUNTER 2023-07-14 20:41 | Observation (INO) | payer MEDICARE ==
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
[2023-07-14 22:23] LABS: Basophils % (A) 0 %; Eosinophils # (A) 0.6 k/uL (0-0.7); Eosinophils % (A) 7 %; HCT 41.3 % (39.0-53.0); HGB 13.4 gm/dL (13.0-17.5); Lymphocytes # (A) 2.2 k/uL (1.0-4.8); Lymphocytes % (A) 26 %; MCH 32.3 pg (25.0-35.0); MCHC 32.4 g/dL (31.0-37.0); MCV 99.7 fL (80.0-100.0); Monocytes # (A) 0.5 k/uL (0-1.0); Monocytes % (A) 5 %; Neutrophils # (A) 5.1 k/uL (1.3-7.7); Neutrophils % (A) 59 %; Platelet Count 305 k/uL (150-450); RBC 4.14 m/uL (4.30-5.90); RDW 13.7 % (11.5-15.5); WBC 8.6 k/uL (3.8-10.6)
[2023-07-14] MEDS: MORPHINE SULFATE 4 MG/ML SYRINGE IV STA (22:24)
[2023-07-14] MEDS: MAG HYDROX/AL HYDROX/SIMETH 30 ML, HYOSCYAMINE ELIXIR 10 ML, LIDOCAINE VISCOUS 2% 10 ML PO STA (22:24)
[2023-07-14] MEDS: ASPIRIN 81 MG PO STA (22:24)
[2023-07-14 22:33] LABS: ALT 26 U/L (4-49); AST 25 U/L (17-59); African American GFR (CKD) 79 (>60 ml/min/1.73 sqM); Alkaline Phosphatase 91 U/L (38-126); Anion Gap 4 mmol/L; Blood Urea Nitrogen 21 mg/dL (9-20); Calcium 9.4 mg/dL (8.4-10.2); Carbon Dioxide 25 mmol/L (22-30); Chloride 108 mmol/L (98-107); Glucose 96 mg/dL (74-99); Magnesium 2.2 mg/dL (1.6-2.3); Non-African American GFR(CKD) 68 (>60 ml/min/1.73 sqM); Potassium 4.5 mmol/L (3.5-5.1); Sodium 137 mmol/L (137-145); Total Bilirubin 0.3 mg/dL (0.2-1.3); Total Protein 6.6 g/dL (6.3-8.2)
--- NOTE | 2023-07-14 22:35 | XR ---
EXAMINATION TYPE: XR chest 2V DATE OF EXAM: 07/14/2023 COMPARISON: Chest CT December 22, 2020 HISTORY: Chest pain TECHNIQUE: Frontal and lateral views of the chest are obtained. FINDINGS: There is no suspicious new focal air space opacity, pleural effusion, or pneumothorax seen . The cardiac silhouette size remains within normal limits. The osseous structures are intact. IMPRESSION: No acute process.
[2023-07-14 22:37] LABS: INR 0.9 (<1.2); Partial Thromboplastin Time 24.1 sec (22.0-30.0); Prothrombin Time 10.4 sec (10.0-12.5)
[2023-07-14] MEDS: ALBUTEROL NEBULIZED 2.5 MG/3 ML INHALATION STA (22:52)
[2023-07-14] MEDS ORDERED: NITROGLYCERIN SL TABS 0.4 MG TAB SUBLINGUAL PRN (23:36)
[2023-07-14] MEDS ORDERED: IPRATROPIUM 0.5 MG/2.5 ML NEBU INHALATION PRN (23:48)
[2023-07-14] MEDS: SODIUM CHLORIDE 0.9% 1,000 ML IV SCH (23:57)
[2023-07-15] MEDS: ACETAMINOPHEN TAB 325 MG TAB PO PRN (01:49)
[2023-07-15] MEDS: OLANZapine 5 MG TAB PO SCH (01:49)
[2023-07-15] MEDS: IPRATROPIUM-ALBUTEROL 3 ML NEB INHALATION PRN (01:59)
[2023-07-15] MEDS: LEVOTHYROXINE 137 MCG TAB PO SCH (06:37)
[2023-07-15] MEDS: LITHIUM CARBONATE ER 450 MG TABLET.ER PO SCH (08:18)
[2023-07-15] MEDS: ASPIRIN 325 MG TAB PO SCH (08:18)
[2023-07-15 08:50] LABS: Chol/HDL Ratio 2.87 Ratio; VLDL Calculation 17.08 mg/dL (5.00-40.00)
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
[2023-07-15 11:05] VITALS: BP 115/72; PULSE 54; RESP 18; TEMP 98.4
[2023-07-15] MEDS ORDERED: OLANZapine 5 MG TAB PO SCH (21:00)
[2023-07-15] MEDS ORDERED: PANTOPRAZOLE 40 MG TABLET PO SCH (21:00)
[2023-07-15] MEDS ORDERED: ATORVASTATIN 10 MG TAB PO SCH (21:00)
== END 2023-07-15 10:53 | disposition home or self-care (01) ==
LOC: EC 20:41 → 6NMEDSUR 23:41
PROVIDERS: ADMIT Family Medicine; ATTEND Family Medicine
DX: R07.89 Other chest pain (principal); K44.9 Diaphragmatic hernia without obstruction or gangrene; K21.9 Gastro-esophageal reflux disease without esophagitis; J44.9 Chronic obstructive pulmonary disease, unspecified; F17.210 Nicotine dependence, cigarettes, uncomplicated; K22.4 Dyskinesia of esophagus; E78.5 Hyperlipidemia, unspecified; R00.1 Bradycardia, unspecified; Z79.890 Hormone replacement therapy; Z79.1 Long term (current) use of non-steroidal anti-inflammatories (NSAID); Z79.899 Other long term (current) drug therapy; Z88.8 Allergy status to other drugs, medicaments and biological substances; Z98.84 Bariatric surgery status
CPT/HCPCS: 96361; 96374; 99285; 36415; 94640 ×3; 94760; 93005; 80061; 80053; 83735; 84484 ×2; 85025; 85610; 85730; 71046; G0378; J2270

== ENCOUNTER → 2023-07-21 | Outpatient (CLI) | payer MEDICARE ==
[2023-07-21 13:34] VITALS: BP 138/69; PULSE 56; TEMP 98; BMI 31.4
--- NOTE | 2023-07-21 18:28 | FL ---
EXAMINATION TYPE: FL UGI single contrast w esophagus DATE OF EXAM: 07/21/2023 COMPARISON: NONE HISTORY: 58-year-old male R13.10 DYSPHAGIA R10.84 ABD PAIN TECHNIQUE: A single contrast esophagram and UGI study is performed. A total of 1 minute 13 seconds of fluoroscopic time was utilized during procedure and 44 images obtained. Total dose area product (D AP) in uGy*m?, mGy*cm? (or similar): 427.58. FINDINGS: The esophagus shows normal course and caliber. Mild periventricular peristaltic waves are encountered but otherwise with prompt emptying of contrast into the stomach. There is a small sliding hiatal hernia noted. Postsurgical change of sleeve gastrectomy is demonstrated. Satisfactory passage of contrast across th e stent gastrectomy without any abnormal positioning or narrowing identified. IMPRESSION: Small sliding hiatal hernia. Status post sleeve gastrectomy. Single contrast exam otherwi se showing no specific abnormality.
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
== END ==
LOC: BARWHC3 10:28
PROVIDERS: ATTEND Surgery
DX: K21.9 Gastro-esophageal reflux disease without esophagitis (principal); K44.9 Diaphragmatic hernia without obstruction or gangrene; R13.10 Dysphagia, unspecified; R10.84 Generalized abdominal pain; J44.9 Chronic obstructive pulmonary disease, unspecified; E78.5 Hyperlipidemia, unspecified; I10 Essential (primary) hypertension; M19.90 Unspecified osteoarthritis, unspecified site; G47.30 Sleep apnea, unspecified; E07.9 Disorder of thyroid, unspecified; G43.909 Migraine, unspecified, not intractable, without status migrainosus; F41.9 Anxiety disorder, unspecified; F31.9 Bipolar disorder, unspecified; F17.210 Nicotine dependence, cigarettes, uncomplicated; Z87.39 Personal history of other diseases of the musculoskeletal system and connective tissue; Z98.84 Bariatric surgery status; Z88.8 Allergy status to other drugs, medicaments and biological substances; Z79.82 Long term (current) use of aspirin; Z79.899 Other long term (current) drug therapy; Z79.890 Hormone replacement therapy
CPT/HCPCS: 74246; 99213

== ENCOUNTER 2023-07-24 06:58 | Day surgery (SDC) | payer MEDICARE ==
[2023-07-24] MEDS: LACTATED RINGERS 1,000 ML IV ONE (07:23)
[2023-07-24] MEDS ORDERED: PROPOFOL 10 MG/ML 20 ML VIAL IV ONE (07:46)
[2023-07-24] MEDS ORDERED: LIDOCAINE 2% (PF) 20 MG/ML 5 ML VIAL ONE (07:46)
[2023-07-24] MEDS ORDERED: fentaNYL (PF) 50 MCG/ML 2 ML AMP ONE (07:46)
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
[2023-07-24 07:48] VITALS: RESP 16; TEMP 97.2
--- NOTE | 2023-07-24 07:59 | P.OP ---
Date of Procedure: 07/24/23 Preoperative Diagnosis: Gerd Postoperative Diagnosis: Mild antral gastritis Procedure(s) Performed: EGD Anesthesia: MAC Surgeon: Edwin Grady Pathology: other (Antrum) Condition: stable Disposition: PACU Description of Procedure: Patient is placed on the endoscopy table in the lateral position. He received IV sedation. The gas was placed oropharynx passed in the esophagus into the stomach. Scope was then placed through the pylorus. The first and second portion of the duodenum appeared normal. Scope was then brought back to the antrum and this appeared mildly Flaim. A biopsy performed. Scope was brought back. Patient had previous gastric sleeve. There is no evidence obstruction. The sleeve was moderately dilated. The GE junction was at 47. The distal esophagus appeared normal. The proximal esophagus appeared open scope withdrawn for the patient.
[2023-07-24 08:50] VITALS: BP 121/76; PULSE 56
== END 2023-07-24 08:48 | disposition home or self-care (01) ==
LOC: ORWHC2ENDO 06:58
PROVIDERS: ATTEND Surgery
DX: K29.50 Unspecified chronic gastritis without bleeding (principal); K21.00 Gastro-esophageal reflux disease with esophagitis, without bleeding; K31.9 Disease of stomach and duodenum, unspecified; I10 Essential (primary) hypertension; E78.5 Hyperlipidemia, unspecified; J44.9 Chronic obstructive pulmonary disease, unspecified; G47.33 Obstructive sleep apnea (adult) (pediatric); M19.90 Unspecified osteoarthritis, unspecified site; F17.200 Nicotine dependence, unspecified, uncomplicated; Z90.49 Acquired absence of other specified parts of digestive tract; Z90.79 Acquired absence of other genital organ(s); Z82.61 Family history of arthritis; Z79.890 Hormone replacement therapy; Z79.1 Long term (current) use of non-steroidal anti-inflammatories (NSAID); Z79.51 Long term (current) use of inhaled steroids; Z88.4 Allergy status to anesthetic agent
CPT/HCPCS: 88305; 43239; J3010; J2704; J2001

== ENCOUNTER → 2023-08-04 | Outpatient (CLI) | payer MEDICARE ==
[2023-08-04 18:27] LABS: Basophils # (A) 0.06 X 10*3/uL (0.00-0.10); Basophils % (A) 0.8 %; Eosinophils # (A) 0.31 X 10*3/uL (0.04-0.35); Eosinophils % (A) 3.9 %; HCT 41.3 % (39.6-50.0); HGB 13.1 g/dL (13.0-17.0); Lymphocytes # (A) 1.93 X 10*3/uL (0.90-5.00); Lymphocytes % (A) 24.6 %; MCH 31.3 pg (27.0-32.0); MCHC 31.7 g/dL (32.0-37.0); MCV 98.8 FL (80.0-97.0); Mean Platelet Volume 9.2 FL (9.5-12.2); Monocytes # (A) 0.64 X 10*3/uL (0.20-1.00); Monocytes % (A) 8.1 %; NRBC Per 100 WBC 0 X 10*3/uL (0.00-0.01); Neutrophils # (A) 4.91 X 10*3/uL (1.80-7.70); Neutrophils % (A) 62.5 %; Platelet Count 314 X 10*3/uL (140-440); RBC 4.18 X 10*6/uL (4.40-5.60); RDW 14.1 % (11.5-14.5); WBC 7.86 X 10*3/uL (4.50-10.00)
== END | disposition home or self-care (01) ==
LOC: LABPAT 13:38
PROVIDERS: ATTEND Surgery
DX: Z01.818 Encounter for other preprocedural examination (principal); K21.9 Gastro-esophageal reflux disease without esophagitis; R00.1 Bradycardia, unspecified
CPT/HCPCS: 36415; 85025; 86850; 86900; 86901; 93005

== ENCOUNTER 2023-08-15 06:15 | Day surgery (SDC) | payer MEDICARE ==
[2023-08-15] MEDS ORDERED: LIDOCAINE 1% (10MG/ML) FOR IV START INTRADERMA PRN (06:23)
[2023-08-15] MEDS: LACTATED RINGERS 1,000 ML IV ONE ×2 (06:45→10:41)
[2023-08-15] MEDS: ONDANSETRON 4 MG/2 ML VIAL ONE (07:00)
[2023-08-15] MEDS ORDERED: HYDROmorphone 0.5 MG/0.5 ML SYRINGE IVP PRN (07:00)
[2023-08-15] MEDS: HEPARIN SODIUM,PORCINE 5,000 UNIT/ML 1 ML VIAL SQ PRN (07:00)
[2023-08-15] MEDS: ACETAMINOPHEN TAB 500 MG TAB PO PRN (07:00)
[2023-08-15] MEDS: DEXAMETHASONE SOD PHOSPHATE 4 MG/ML 1 ML VIAL IV ONE (07:25)
[2023-08-15] MEDS: BUPIVACAINE (PF) 0.25% 30 ML VIAL SQ ONE (08:37)
[2023-08-15] MEDS ORDERED: ROCURONIUM 10 MG/ML (5 ML VIAL) IV ONE (08:38)
[2023-08-15] MEDS ORDERED: LIDOCAINE 4% LTA KIT (4 ML) TOPICAL ONE (08:38)
[2023-08-15] MEDS ORDERED: MIDAZOLAM 2 MG/2 ML VIAL ONE (08:38)
[2023-08-15] MEDS ORDERED: GLYCOPYRROLATE 0.2 MG/ML 2 ML VIAL ONE (08:38)
[2023-08-15] MEDS ORDERED: NEOSTIGMINE 1 MG/ML 10 ML VIAL ONE (08:38)
[2023-08-15] MEDS ORDERED: KETOROLAC 15 MG/ML 1 ML VIAL ONE (08:38)
[2023-08-15] MEDS ORDERED: LIDOCAINE 1% INJ 10MG/ML (20 ML MDV) ONE (08:38)
[2023-08-15] MEDS ORDERED: fentaNYL (PF) 50 MCG/ML 2 ML AMP ONE (08:38)
[2023-08-15] MEDS ORDERED: PROPOFOL 10 MG/ML 20 ML VIAL IV ONE (08:38)
--- NOTE | 2023-08-15 09:38 | P.OP ---
Date of Procedure: 08/15/23 Preoperative Diagnosis: Hiatal hernia Postoperative Diagnosis: Hiatal hernia Procedure(s) Performed: Laparoscopic repair of hiatal hernia Anesthesia: JOSHUA Surgeon: Edwin Grady Estimated Blood Loss (ml): 5 Pathology: none sent Condition: stable Disposition: PACU Description of Procedure: MThe patient was placed on the operating table in the supine position. The patient received general anesthesia. And was placed in dorsal lithotomy position. The patient was prepped and draped in the usual sterile fashion. The skin incision sites were anesthetized with 1% local Xylocaine. The skin was incised in the left periumbilical area and then using a blade less 5 mm trocar under direct visualization panel cavity was entered. After adequate insufflation the laparoscope was then placed into the peritoneal cavity. Next a 5 mm trochars placed in the right epigastric position. Another 5 millimeter trocar the right lateral position. Another 5 millimeter trocar in the left lateral position a 5 mm trocar is placed in the left epigastric position. And then the initial 5 mm trocar was exchanged for a 10 mm trocar. The left lateral lobe liver was retracted. The hernia was seen. The crural defect was then dissected using the Harmonic scissors device. A 360 crural dissection was performed the esophagus stomach was reduced back into the peritoneal Cavity. The crural defect was then closed using 2-0 Ethibond suture. N There was no injury seen to the stomach or esophagus. The dilator was then withdrawn. The abdomen was irrigated there is no bleeding seen. The trochars were then withdrawn and then skin incision sites were closed using 3-0 Monocryl suture Steri-Strips are applied. Patient thought procedure well and sent to recovery room in stable condition.
[2023-08-15] MEDS: ALBUTEROL NEBULIZED 2.5 MG/3 ML INHALATION ONE ×2 (10:06→10:26)
[2023-08-15] MEDS: droPERidol 5 MG/2 ML VIAL IVP ONE (14:24)
[2023-08-15] MEDS: LACTATED RINGERS 1,000 ML IV SCH (14:24)
[2023-08-15] MEDS: METOCLOPRAMIDE 5 MG/ML 2 ML VIAL IVP SCH (14:24)
[2023-08-15] MEDS: HYDROmorphone 1 MG/ML 1 ML SYRINGE IVP PRN (14:45)
[2023-08-15] MEDS: IPRATROPIUM-ALBUTEROL 3 ML NEB INHALATION SCH (15:59)
[2023-08-15] MEDS: D5-0.45% NACL WITH KCL 20MEQ/L 1,000 ML IV SCH (17:41)
[2023-08-15] MEDS: clonazePAM 1 MG TAB PO PRN (20:57)
[2023-08-15] MEDS: OLANZapine 5 MG TAB PO SCH (20:57)
[2023-08-15] MEDS: PANTOPRAZOLE 40 MG TABLET PO SCH (20:57)
[2023-08-16] MEDS: LITHIUM CARBONATE ER 450 MG TABLET.ER PO SCH (06:09)
[2023-08-16] MEDS: LEVOTHYROXINE 137 MCG TAB PO SCH (06:09)
[2023-08-16] MEDS: ACETAMINOPHEN TAB 325 MG TAB PO PRN (08:27)
[2023-08-16] MEDS: lamoTRIgine 100 MG TAB PO SCH (08:27)
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
[2023-08-16 12:48] VITALS: BMI 33.3
[2023-08-16] MEDS: ONDANSETRON 4 MG/2 ML VIAL IVP PRN (16:24)
[2023-08-16] MEDS: CHOLECALCIFEROL 125 MCG (5000 IU) TABLET PO SCH (16:48)
[2023-08-16] MEDS: MULTIVITAMINS, THERA 1 EACH TAB PO SCH (16:48)
[2023-08-16] MEDS: ATORVASTATIN 10 MG TAB PO SCH (16:48)
[2023-08-16] MEDS: clonazePAM 1 MG TAB PO SCH (19:56)
--- NOTE | 2023-08-16 22:27 | P.PN ---
Subjective Patient seen and evaluated at bedside. Patient denies shortness of breath, denies chest pain. abdominal pain controlled. Objective - Vital Signs Vital signs: Vital Signs Temp 98.3 F 08/16/23 19:59 Pulse 75 08/16/23 21:22 Resp 20 08/16/23 19:59 BP 132/81 08/16/23 19:59 Pulse Ox 91 L 08/16/23 19:59 FiO2 Intake & Output 08/16/23 08/16/23 08/17/23 06:59 18:59 07:59 Weight 96.7 kg Other: # Voids 1 4 # Bowel Movements 1 gen:nad cv: rrr pul: non labored breathing abd: soft, slightly distended, no guarding or rebound tenderness ext: b/l trace edema Assessment and Plan Assessment: 58 yo male s/p avel fundoplication -encourage ambulation -encourage incentive spirometer use -pain control -trend hgb Time with Patient: Greater than 30
[2023-08-17 07:26] VITALS: BP 124/62; RESP 18; TEMP 97.9
[2023-08-17] MEDS: ASPIRIN 81 MG PO SCH (08:01)
[2023-08-17] MEDS: ALBUTEROL NEBULIZED 2.5 MG/3 ML INHALATION PRN (08:37)
--- NOTE | 2023-08-17 10:16 | P.DS ---
Providers Expected date of discharge: 08/17/23 Attending physician: Edwin Grady Consults: 08/15/23 09:38 Consult Physician Routine Consulting Provider: Donaldo Solis Consult Reason/Comments: Medical management Do you want consulting provider notified?: Yes Primary care physician: Donaldo Solis [facility] Course: 58-year-old male underwent hiatal hernia repair with fundoplication 2 days ago. Doing well today. Says he has no significant pain. Tolerating liquids. No nausea or vomiting. Patient would like to go home today. He is still on oxygen by nasal cannula. Will have the patient ambulate and see what his pulse ox is. Possible discharge if cleared by medicine. Plan - Discharge Summary Discharge Rx Participant: Yes New Discharge Prescriptions: No Action lamoTRIgine [LaMICtal] 100 mg PO QAM clonazePAM [KlonoPIN] [address] [place] Carbonate ER [Lithobid] 450 mg PO BID@0600,1700 OLANZapine [ZyPREXA] 5 mg PO HS Citalopram Hydrobromide [CeleXA] 20 mg PO DAILY@1700 Simvastatin [Zocor] 20 mg PO DAILY@1700 Meloxicam [Mobic] 15 mg PO DAILY Levothyroxine Sodium [Synthroid] 137 mcg PO QAM Omeprazole [PriLOSEC] 40 mg PO HS Ipratropium [place] 0.2 mg INHALATION RT-QID PRN PRN Reason: Shortness Of Breath Mv-Min/Folic/K1/Lycopen/Lutein [Centrum Silver Men Tablet] 1 tab PO DAILY@1700 Aspirin 81 mg PO DAILY Albuterol Inhaler [Ventolin Hfa Inhaler] 2 puff INHALATION RT-QID PRN PRN Reason: Shortness Of Breath Albuterol Nebulized [Ventolin Nebulized] 2.5 mg INHALATION RT-QID PRN PRN Reason: Shortness Of Breath Acetaminophen Tab [Tylenol] 650 mg PO Q6H PRN PRN Reason: Pain Cholecalciferol [Vitamin D3 (125 Mcg = 5000 Iu)] 125 mcg PO DAILY@1700 Discharge Medication List Citalopram Hydrobromide [CeleXA] 20 mg PO DAILY@1700 12/14/15 [History] [place] Carbonate ER [Lithobid] 450 mg PO BID@0600,1700 12/14/15 [History] OLANZapine [ZyPREXA] 5 mg PO HS 12/14/15 [History] clonazePAM [KlonoPIN] 1 mg PO TID 12/14/15 [History] lamoTRIgine [LaMICtal] 100 mg PO QAM 12/14/15 [History] Levothyroxine Sodium [Synthroid] 137 mcg PO QAM 06/24/17 [History] Meloxicam [Mobic] 15 mg PO DAILY 06/24/17 [History] Simvastatin [Zocor] 20 mg PO DAILY@169906/24/17 [History] Albuterol Inhaler [Ventolin Hfa Inhaler] 2 puff INHALATION RT-QID PRN 04/03/21 [History] Omeprazole [PriLOSEC] 40 mg PO HS 04/03/21 [History] Albuterol Nebulized [Ventolin Nebulized] 2.5 mg INHALATION RT-QID PRN 08/27/22 [History] Acetaminophen Tab [Tylenol] 650 mg PO Q6H PRN 10/02/22 [History] Ipratropium [place] 0.2 mg INHALATION RT-QID PRN 12/27/22 [History] Cholecalciferol [Vitamin D3 (125 Mcg = 5000 Iu)] 125 mcg PO DAILY@169907/15/23 [History] Mv-Min/Folic/K1/Lycopen/Lutein [Centrum Silver Men Tablet] 1 tab PO DAILY@169907/15/23 [History] Aspirin 81 mg PO DAILY 07/22/23 [History]
[2023-08-17 11:20] LABS: BUN/Creat Ratio 7.18 Ratio (12.00-20.00); Blood Urea Nitrogen 7.9 mg/dL (9.0-27.0); Calcium 9.4 mg/dL (8.7-10.3); Carbon Dioxide 26.8 mmol/L (21.6-31.8); Chloride 107 mmol/L (96-109); Glucose 93 mg/dL (70-110); Potassium 4.7 mmol/L (3.5-5.5); Sodium 144 mmol/L (135-145)
[2023-08-17 12:16] VITALS: PULSE 68
--- NOTE | 2023-08-18 23:12 | P.PN ---
Subjective Progress Note Date: 08/17/23 Patient is a pleasant 58-year-old male admitted for laparoscopic repair of the hiatal hernia. Patient successfully underwent surgery patient is complaining of some pain has sluggish bowel sounds. Patient pain is fairly well-controlled. Patient does have history of COPD patient does have benign essential tremor. Patient is receiving IV fluids at 125 cc/h half-normal saline with potassium supplementation which will be discontinued patient was started on liquid diet at this time. 08/17/2023 Patient is evaluated today on the medical floor. He is reporting minimal abdominal discomfort. He is status post laproscopic repair of the hiatal hernia. Patient has been up ambulating. Tolerating diet. Had a bowel movement. Renal function WNL. Patient will be discharged on a nicotine patch reports smoking about 1.5 packs per day. Review of Systems Constitutional: Denied any fatigue denied any fever. Cardio vascular: denied any chest pain, palpitations Gastrointestinal: denied any nausea, vomiting, diarrhea Pulmonary: Denied any shortness of breath cough Neurologic denied any new focal deficits All inpatient medications were reviewed and appropriate changes in these medications as dictated in the interval history and assessment and plan. The impression and plan of care has been dictated by Yanira Carreon Nurse Practitioner as directed. PHYSICAL EXAMINATION: GENERAL: The patient is alert and oriented x3, not in any acute distress. Well developed, well nourished. Resting tremor which is chronic HEENT: Pupils are round and equally reacting to light. EOMI. No scleral icterus. No conjunctival pallor. Normocephalic, atraumatic. No pharyngeal erythema. No thyromegaly. CARDIOVASCULAR: S1 and S2 present. No murmurs, rubs, or gallops. PULMONARY: Chest is clear to auscultation, no wheezing or crackles. ABDOMEN: Soft, nontender, nondistended, sluggish bowel sounds. No palpable organomegaly. MUSCULOSKELETAL: No joint swelling or deformity. EXTREMITIES: No cyanosis, clubbing, or pedal edema. NEUROLOGICAL: Gross neurological examination did not reveal any focal deficits. SKIN: No rashes. Assessment and plan -Status post a laparoscopic hiatal hernia repair: Patient pain is well- controlled on avel clear diet. -COPD without any acute exacerbation continue with inhalational treatments -Gastroesophageal reflux disease -Hyperlipidemia -Hypertension -Tremor: Possibly benign essential tremor clinically does not appear to be Parkinson's. Further workup and TSH as an outpatient -Obesity, sleep apnea uses CPAP machine which she will continue using -Hypothyroidism -Nicotine use: Counseling was provided, discharge with nicotine patch taper. -Bipolar disorder on lithium -DVT prophylaxis as per primary service For above-mentioned chronic medical problems patient to be resumed on appropriate home medications Medically patient is stable for discharge home. Recommended to see PCP Dr. Solis in 1 to 2 days. Continue with nicotine patch; discussed smoking cessation. The impression and plan of care has been dictated by Yanira Carreon, Nurse Practitioner as directed. Dr. Angelina MD I have performed a history and physical examination and medical decision making of this patient, discussed the same with the dictator, and agree with the dictators assessment and plan as written, documented as a scribe. Based on total visit time, I have performed more than 50% of this visit. Objective - Vital Signs Vital signs: Vital Signs Temp 97.9 F 08/17/23 07:10 Pulse 70 08/17/23 08:51 Resp 18 08/17/23 07:10 BP 124/62 08/17/23 07:10 Pulse Ox 96 08/17/23 07:10 FiO2 Intake & Output 08/16/23 08/17/23 08/17/23 17:59 06:59 18:59 Weight Other: # Voids # Bowel Movements - Labs CBC & Chem 7: 08/17/23 06:22 Assessment and Plan Time with Patient: Less than 30
== END 2023-08-17 15:13 | disposition home or self-care (01) ==
LOC: OR 06:15 → 4SSUR 09:54 → OR 08-17 15:13
PROVIDERS: ATTEND Surgery
DX: K44.9 Diaphragmatic hernia without obstruction or gangrene (principal); E03.9 Hypothyroidism, unspecified; E78.5 Hyperlipidemia, unspecified; F31.9 Bipolar disorder, unspecified; F41.9 Anxiety disorder, unspecified; G25.0 Essential tremor; G47.30 Sleep apnea, unspecified; E66.9 Obesity, unspecified; I10 Essential (primary) hypertension; J44.9 Chronic obstructive pulmonary disease, unspecified; K21.9 Gastro-esophageal reflux disease without esophagitis; M19.90 Unspecified osteoarthritis, unspecified site; G43.909 Migraine, unspecified, not intractable, without status migrainosus; F17.210 Nicotine dependence, cigarettes, uncomplicated; Z79.1 Long term (current) use of non-steroidal anti-inflammatories (NSAID); Z79.82 Long term (current) use of aspirin; Z79.890 Hormone replacement therapy; Z79.899 Other long term (current) drug therapy; Z90.49 Acquired absence of other specified parts of digestive tract; Z68.33 Body mass index [BMI] 33.0-33.9, adult
CPT/HCPCS: 43281; 94640 ×5; 94760; 86900; 86901; 80048; 80178; 86850; J1644; J1100; J2765 ×3; J0690; J2405 ×2; J1170 ×2; J0665

== ENCOUNTER → 2024-01-02 | Outpatient (CLI) | payer MEDICARE ==
--- NOTE | 2024-01-02 09:36 | FL ---
EXAMINATION TYPE: FL UGI air w esophagus DATE OF EXAM: 01/02/2024 COMPARISON: NONE HISTORY: Seizure TECHNIQUE: A double contrast UGI study is performed. A total of 2 minutes and 22 seconds of fluoros copic time was utilized during procedure and 19 images obtained. Total dose area product (DAP) in uGy *m?, mGy*cm? (or similar): Not provided. FINDINGS: Infection Preventionist image of the abdomen shows no gross abnormality. Barium was swallowed and there is distention esophagus with tertiary contractions and a stricture of the distal esophagus with some irregularity. Underlying esophageal neoplasm versus severe reflux stri cture. Sestamibi the stomach was limited due to incomplete distention and difficulty with contrast pa ssing through into the stomach. Would recommend EGD. Duodenal bulb distended normally and duodenal sw eep had a normal appearance.. IMPRESSION: 1. Severe distal esophageal stricture underlying mass or severe reflux stricture in the differential diagnosis. Recommend EGD. 2. Assessment the stomach is limited due to difficulty with passage of contrast from the esophagus to the stomach. EGD recommended. 3. There are 3 normal duodenal bulb and sweep.
== END | disposition home or self-care (01) ==
LOC: RADFLMAIN 12-31 09:39
PROVIDERS: ATTEND Surgery
DX: Z53.9 Procedure and treatment not carried out, unspecified reason (principal)
CPT/HCPCS: 74246

== ENCOUNTER 2024-01-07 18:51 | Observation (INO) | payer MEDICARE ==
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
[2024-01-07] MEDS ORDERED: NALOXONE 0.4 MG/ML 1 ML VIAL IV PRN (21:36)
[2024-01-07] MEDS: NICOTINE 21MG/24HR PATCH TRANSDERM STA (22:11)
[2024-01-07] MEDS: ALBUTEROL NEBULIZED 2.5 MG/3 ML INHALATION STA (22:11)
[2024-01-07] MEDS: SODIUM CHLORIDE 0.9% 1,000 ML IV SCH (22:11)
[2024-01-07] MEDS ORDERED: IPRATROPIUM 0.5 MG/2.5 ML NEBU INHALATION PRN (23:00)
[2024-01-07] MEDS ORDERED: ALBUTEROL HFA INHALER INHALATION PRN (23:00)
[2024-01-07] MEDS: ATORVASTATIN 10 MG TAB PO SCH (23:23)
[2024-01-07] MEDS: OLANZapine 5 MG TAB PO SCH (23:23)
[2024-01-07] MEDS: clonazePAM 1 MG TAB PO SCH (23:25)
[2024-01-08] MEDS: ALBUTEROL NEBULIZED 2.5 MG/3 ML INHALATION PRN (02:53)
[2024-01-08 07:47] LABS: Basophils % (A) 1 %; Eosinophils # (A) 0.6 k/uL (0-0.7); Eosinophils % (A) 10 %; HCT 39.8 % (39.0-53.0); HGB 12.4 gm/dL (13.0-17.5); Hypochromasia Marked; Lymphocytes # (A) 1.9 k/uL (1.0-4.8); Lymphocytes % (A) 29 %; MCH 31.7 pg (25.0-35.0); MCHC 31.2 g/dL (31.0-37.0); MCV 101.6 fL (80.0-100.0); Macrocytosis Slight; Mean Platelet Volume 6.8; Monocytes # (A) 0.5 k/uL (0-1.0); Monocytes % (A) 8 %; Neutrophils # (A) 3.3 k/uL (1.3-7.7); Neutrophils % (A) 51 %; Platelet Count 328 k/uL (150-450); RBC 3.92 m/uL (4.30-5.90); RDW 14.1 % (11.5-15.5); WBC 6.6 k/uL (3.8-10.6)
[2024-01-08 08:00] LABS: African American GFR (CKD) 75 (>60 ml/min/1.73 sqM); Anion Gap 3 mmol/L; Blood Urea Nitrogen 20 mg/dL (9-20); Calcium 9.2 mg/dL (8.4-10.2); Carbon Dioxide 27 mmol/L (22-30); Chloride 110 mmol/L (98-107); Glucose 92 mg/dL (74-99); Non-African American GFR(CKD) 65 (>60 ml/min/1.73 sqM); Potassium 4.6 mmol/L (3.5-5.1); Sodium 140 mmol/L (137-145)
[2024-01-08] MEDS: ACETAMINOPHEN TAB 325 MG TAB PO PRN (09:29)
[2024-01-08] MEDS ORDERED: PROPOFOL 10 MG/ML 20 ML VIAL IV ONE (10:45)
[2024-01-08] MEDS ORDERED: LIDOCAINE 1% INJ 10MG/ML (20 ML MDV) ONE (10:45)
[2024-01-08] MEDS: IV FLUID CONTINUATION 600 ML IV ONE (10:45)
--- NOTE | 2024-01-08 11:07 | P.OP ---
Date of Procedure: 01/08/24 Preoperative Diagnosis: Esophageal stricture Postoperative Diagnosis: Esophageal stricture Procedure(s) Performed: EGD with balloon dilatation of esophageal stricture Anesthesia: MAC Surgeon: Edwin Grady Pathology: none sent Condition: stable Disposition: PACU Description of Procedure: The patient was placed on the endoscopy table in the lateral position. He received IV sedation. The Gastroflux oropharynx passed in the esophagus and into the stomach and then through the pylorus into the first and second portion of duodenum. There was no obstruction seen of the gastric outlet. The scope was then brought back through the stomach. Patient had previous sleeve gastrectomy. There is no obstruction of the stomach seen. Scope was brought back to level GE junction which was at 40 cm. There appeared to be slight stricture of the GE junction. This point the 20 mm balloon was placed across th e GE junction. After dilation there was no evidence of any injury to the GE junction. The scope was withdrawn. Patient Toller procedure well. He was sent to recovery in stable condition.
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
[2024-01-08] MEDS: IPRATROPIUM 0.5 MG/2.5 ML NEBU INHALATION SCH (12:14)
[2024-01-08] MEDS: PANTOPRAZOLE 40 MG/10 ML VIAL IVP SCH (13:08)
[2024-01-08] MEDS: lamoTRIgine 100 MG TAB PO SCH (13:08)
[2024-01-08] MEDS: LEVOTHYROXINE 137 MCG TAB PO SCH (13:09)
[2024-01-08] MEDS: LORATADINE 10 MG TAB PO SCH (13:09)
[2024-01-08] MEDS ORDERED: IOPAMIDOL CONTRAST (ORAL USE) VIAL PO PRN (13:16)
[2024-01-08] MEDS ORDERED: ONDANSETRON 4 MG/2 ML VIAL IVP PRN (13:17)
[2024-01-08] MEDS: LITHIUM CARBONATE ER 450 MG TABLET.ER PO SCH ×2 (14:46→19:50)
--- NOTE | 2024-01-08 15:55 | CT ---
EXAMINATION TYPE: CT abdomen pelvis w con DATE OF EXAM: 01/08/2024 COMPARISON: NONE HISTORY: 58-year-old male Dysphagia, vomiting, abdominal pain. Technologist notes: Pt not able to com plete 2nd drink TECHNIQUE: Contiguous axial scanning of the abdomen and pelvis following administration of 100 ml Iso maria elena 300 IV contrast. Delayed images through the kidneys and coronal/sagittal reconstructions perform ed. CT DLP: 1299.7 mGycm Automated exposure control for dose reduction was used. FINDINGS: The heart is normal size without pericardial effusion. There is patchy opacity right infrah ilar region and posterior right base. Additional dependent opacity, probably atelectasis. No pleural effusion. Post surgical changes of sleeve gastrectomy. There is circumferential wall thickening of the visualiz ed distal third esophagus. Liver borderline enlarged at 17.2 cm. There may be mild fatty infiltration. No focal lesions seen. Po rtal venous system is patent. No biliary ductal dilatation. Gallbladder surgically absent. Adrenal glands, spleen, and pancreas show no gross abnormality. A few scattered small renal cortical cysts measuring up to 5 mm. No dilated multiple bowel, free fluid, or free air. A mildly enlarged 1.2 cm right lower quadrant mesenteric lymph node. This may be reactive/post inflam matory. Additional scattered nonenlarged mesenteric nodes. No retroperitoneal adenopathy. Normal appendix. There is circumferential wall thickening at the cecum and ascending colon, for examp le, axial image 35. Suggestion of mild circumferential wall thickening along the transverse colon, co darron image 32 and also along the mid to lower descending colon, coronal image 65. There is extensive sigmoid diverticulosis but no focal findings of acute diverticulitis. Bladder urine distended. Small prostate gland. No abnormal fluid collection in the pelvis or pelvic l ymphadenopathy. Bones: Hypertrophic facet arthropathy mid to lower lumbar spine with degenerative grade 1 anterolisth esis L4-L5. IMPRESSION: 1. STATUS POST SLEEVE GASTRECTOMY. THERE IS CIRCUMFERENTIAL WALL THICKENING OF THE VISUALIZED DISTAL THORACIC ESOPHAGUS WHICH SUGGESTS ESOPHAGITIS. RECOMMEND DIRECT VISUALIZATION ESPECIALLY GIVEN THE IM PRESSION ON THE PATIENT'S 01/02/2024 UPPER GI EXAM. 2. SEGMENTAL CIRCUMFERENTIAL WALL THICKENING SCATTERED THROUGHOUT THE COLON. CORRELATE FOR A NONSPECI FIC MODERATE INFECTIOUS OR INFLAMMATORY COLITIS. NO ABSCESS OR FREE AIR. 3. SIGMOID DIVERTICULOSIS WITHOUT FINDINGS TO SUGGEST ACUTE DIVERTICULITIS. 4. PATCHY OPACITY RIGHT INFRAHILAR REGION AND RIGHT BASE COULD REPRESENT ATELECTASIS OR DEVELOPING IN FILTRATE. CORRELATE WITH PATIENT'S SYMPTOMS. 5. A MILDLY ENLARGED 1.2 CM RIGHT LOWER QUADRANT MESENTERIC LYMPH NODE. PROBABLY REACTIVE/POST INFLAM MATORY. FOLLOW-UP CT IN 3-6 MONTHS TO ENSURE STABILITY/RESOLUTION.
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
[2024-01-08] MEDS ORDERED: ATORVASTATIN 10 MG TAB PO SCH (17:00)
[2024-01-08] MEDS: NICOTINE 21MG/24HR PATCH TRANSDERM SCH (19:22)
[2024-01-09 08:47] VITALS: TEMP 97.8
[2024-01-09] MEDS ORDERED: IPRATROPIUM 0.5 MG/2.5 ML NEBU INHALATION PRN (09:23)
[2024-01-09 10:17] LABS: HCT 37.1 % (39.0-53.0); HGB 11.6 gm/dL (13.0-17.5); Hypochromasia Marked; MCH 31.4 pg (25.0-35.0); MCHC 31.2 g/dL (31.0-37.0); MCV 100.9 fL (80.0-100.0); Macrocytosis Slight; Mean Platelet Volume 7.1; Platelet Count 307 k/uL (150-450); RBC 3.68 m/uL (4.30-5.90); WBC 6.5 k/uL (3.8-10.6)
[2024-01-09 10:27] LABS: African American GFR (CKD) 83 (>60 ml/min/1.73 sqM); Anion Gap 1 mmol/L; Blood Urea Nitrogen 15 mg/dL (9-20); Calcium 9.4 mg/dL (8.4-10.2); Carbon Dioxide 27 mmol/L (22-30); Chloride 110 mmol/L (98-107); Glucose 108 mg/dL (74-99); Non-African American GFR(CKD) 72 (>60 ml/min/1.73 sqM); Potassium 4.1 mmol/L (3.5-5.1); Sodium 138 mmol/L (137-145)
[2024-01-09] MEDS: SYMBICORT 80-4.5 MCG INHALER INHALATION SCH (12:01)
[2024-01-09 15:08] VITALS: BP 121/73; PULSE 63; RESP 16
--- NOTE | 2024-01-09 16:47 | P.DS ---
Providers Date of admission: 01/07/24 21:38 Expected date of discharge: 01/09/24 Attending physician: Edwin Grady Consults: 01/07/24 22:56 Consult Physician Routine Consulting Provider: Donaldo Solis Reason/Comments: medical management Do you want consulting provider notified?: Yes, Notify in am Primary care physician: Donaldo Solis [facility] Course: 59-year-old male admitted with complaints of dysphagia and vomiting. Patient says his dysphagia is especially worse with cold liquids. Underwent EGD with dilation yesterday. CAT scan showed mild nonspecific colitis. Patient doing well today. Tolerating diet. He is very anxious to go home. Plan discharge at this time. Follow-up with Dr. Grady to discuss possible further workup of the inflammatory changes of the colon and the mildly enlarged lymph node seen on recent CAT scan. Patient Condition at Discharge: Stable Plan - Discharge Summary New Discharge Prescriptions: No Action lamoTRIgine [LaMICtal] 100 mg PO DAILY clonazePAM [KlonoPIN] 1 mg PO TID@0800,1700,2100 [place] Carbonate ER [Lithobid] 450 mg PO BID@0800,1700 OLANZapine [ZyPREXA] 5 mg PO HS Citalopram Hydrobromide [CeleXA] 20 mg PO DAILY@1700 Simvastatin [Zocor] 20 mg PO DAILY@1700 Meloxicam [Mobic] 15 mg PO DAILY Omeprazole [PriLOSEC] 40 mg PO DAILY Ipratropium [place] 0.2 mg INHALATION RT-QID PRN PRN Reason: Shortness Of Breath Mv-Min/Folic/K1/Lycopen/Lutein [Centrum Silver Men Tablet] 1 tab PO DAILY@1700 Aspirin 81 mg PO DAILY Acetaminophen [Tylenol Arthritis] 650 mg PO Q8H PRN PRN Reason: Pain Magnesium(Unknown Dose) 1 dose PO HS Albuterol Inhaler [Ventolin Hfa Inhaler] 2 puff INHALATION RT-QID PRN PRN Reason: Shortness Of Breath Albuterol Nebulized [Ventolin Nebulized] 2.5 mg INHALATION RT-QID PRN PRN Reason: Shortness Of Breath Cholecalciferol [Vitamin D3 (125 Mcg = 5000 Iu)] 125 mcg PO DAILY@1700 Levothyroxine Sodium [Synthroid] 137 mcg PO DAILY Loratadine 10 mg PO DAILY Discharge Medication List Citalopram Hydrobromide [CeleXA] 20 mg PO DAILY@1700 12/14/15 [History] [place] Carbonate ER [Lithobid] 450 mg PO BID@0800,1700 12/14/15 [History] OLANZapine [ZyPREXA] 5 mg PO HS 12/14/15 [History] clonazePAM [KlonoPIN] 1 mg PO TID@0800,1700,2100 12/14/15 [History] lamoTRIgine [LaMICtal] 100 mg PO DAILY 12/14/15 [History] Meloxicam [Mobic] 15 mg PO DAILY 06/24/17 [History] Simvastatin [Zocor] 20 mg PO DAILY@17006/24/17 [History] Albuterol Inhaler [Ventolin Hfa Inhaler] 2 puff INHALATION RT-QID PRN 04/03/21 [History] Omeprazole [PriLOSEC] 40 mg PO DAILY 04/03/21 [History] Albuterol Nebulized [Ventolin Nebulized] 2.5 mg INHALATION RT-QID PRN 08/27/22 [History] Ipratropium [place] 0.2 mg INHALATION RT-QID PRN 12/27/22 [History] Cholecalciferol [Vitamin D3 (125 Mcg = 5000 Iu)] 125 mcg PO DAILY@169907/15/23 [History] Mv-Min/Folic/K1/Lycopen/Lutein [Centrum Silver Men Tablet] 1 tab PO DAILY@17007/15/23 [History] Aspirin 81 mg PO DAILY 07/22/23 [History] Acetaminophen [Tylenol Arthritis] 650 mg PO Q8H PRN 01/07/24 [History] Magnesium(Unknown Dose) 1 dose PO HS 01/07/24 [History] Levothyroxine Sodium [Synthroid] 137 mcg PO DAILY 01/08/24 [History] Loratadine 10 mg PO DAILY 01/08/24 [History] Follow up Appointment(s)/Referral(s): Donaldo Solis DO [Primary Care Provider] - 1-2 days Edwin Grady MD [STAFF PHYSICIAN] - 1 Week
--- NOTE | 2024-01-09 17:04 | P.PN ---
Subjective Progress Note Date: 01/09/24 01/08/2024 this is a 58-year-old gentleman with past medical history significant for gastric sleeve, esophageal dysmotility, diaphragmatic hernia repair, nicotine dependence, hyperlipidemia, COPD and multiple other medical issues, underwent upper GI study on January 01, secondary to worsening dysphagia. reporting severe distal esophageal stricture, underlying mass or severe reflux stricture. Assessment of stomach was limited due to difficulty with passage of contrast from the esophagus to the stomach with EGD recommended. Patient was advised to proceed to the ER. N.p.o., scheduled for EGD today. Vital signs stable, maintaining O2 sats in the 90s on room air. WBC 6.6, hemoglobin 12.4, MCV 101.6, platelets 328, sodium 140, potassium 4.6, bicarb 27, BUN 20, creatinine 1.22( baseline). 01/09/2024 status post EGD with dilation, postop day #1. Yesterday after EGD attempted full liquids unsuccessfully. Reported that liquids continued "sticking" in the liquids came back up. CT of abdomen pelvis completed post EGD reporting status post sleeve gastrectomy- circumferential wall thickening of the visualized distal thoracic esophagus suggesting esophagitis, segmental circumferential wall thickening scattered throughout the colon, no abscess or free air, sigmoid diverticulosis, patchy opacity right infrahilar region and right base, could represent atelectasis or developing infiltrate, mildly enlarg ed 1.2 cm right lower quadrant mesenteric lymph node probably reactive/postinflammatory follow-up CT in 3 to 6 months to ensure stability/resolution. Yesterday afebrile, normal WBC , repeat labs pending .continues on full liquid diet and reports swallowing appears better this morning. Further recommendations per general surgery pending. Objective - Vital Signs Vital signs: Vital Signs Temp 97.8 F 01/09/24 07:00 Pulse 84 01/09/24 07:59 Resp 22 01/09/24 07:00 BP 114/73 01/09/24 07:00 Pulse Ox 93 L 01/09/24 07:00 FiO2 Intake & Output 01/08/24 01/09/24 01/09/24 18:59 06:59 18:59 Intake Total 200 Balance 200 Intake: IV 200 Other: Voiding Method Toilet Toilet # Voids 1 1 - Exam PHYSICAL EXAM: VITAL SIGNS: [As above] GENERAL: Alert and oriented x 3, sitting up in bed, no acute distress HEENT: Atraumatic, normocephalic, sclera anicteric ,conjunctivae normal. NECK: Supple, no JVD. CARDIOVASCULAR: S1, S2 regular. No murmur RESPIRATION: Unlabored, equal air entry, expiratory wheezing ABDOMEN: Soft, nondistended, nontender, no guarding, no rigidity, positive bowel sounds LEGS: No edema. no swelling, no calf tenderness. NERVOUS SYSTEM: Cranial N 2-12 grossly normal. No focal deficits. Strength and sensation grossly intact. Skin: Warm and dry, no rash - Labs CBC & Chem 7: 01/09/24 09:43 01/09/24 09:43 Assessment and Plan Assessment: Dysphagia, severe distal esophageal stricture underlying mass reported per upper GI, status post EGD with dilation Atelectasis secondary to the above Gastroesophageal reflux disease COPD Mildly enlarged 1.2 cm right lower quadrant mesenteric lymph node probably reactive/postinflammatory, reported per CT. Follow-up CT in 3 to 6 months to ensure stability/resolution Chronic kidney disease stage II History of hiatal hernia repair History of dysphagia, esophageal dysmotility dilated History of sleeve gastrectomy Morbid obesity, BMI 32 Ongoing nicotine dependence Plan: Continue on current medication resume ,monitoring and symptomatic treatment. Labs pending. Aggressive pulmonary toileting, continuing nebulized bronchodilators scheduled and prn. Symbicort added to med regimen. Incentive spirometer ordered. Maintain nicotine patch ,smoking sensation reinforced. Discharge planning in progress as per general surgery. Follow-up with PCP in 1 week. The impression and plan of care has been dictated as directed. : I performed a history and examination of this patient, discussed the same with the dictator. I agree with the dictator's note ,documented as a scribe. Any additional findings or plans will be noted.
== END 2024-01-09 17:00 | disposition home or self-care (01) ==
LOC: EC 18:51 → 6NMEDSUR 21:38 → 1SOBS 21:53
PROVIDERS: ADMIT Surgery; ATTEND Surgery
DX: K22.2 Esophageal obstruction (principal); J44.9 Chronic obstructive pulmonary disease, unspecified; K21.9 Gastro-esophageal reflux disease without esophagitis; E78.5 Hyperlipidemia, unspecified; M19.90 Unspecified osteoarthritis, unspecified site; G47.30 Sleep apnea, unspecified; E07.9 Disorder of thyroid, unspecified; K52.9 Noninfective gastroenteritis and colitis, unspecified; I12.9 Hypertensive chronic kidney disease with stage 1 through stage 4 chronic kidney disease, or unspecified chronic kidney disease; N18.2 Chronic kidney disease, stage 2 (mild); E66.01 Morbid (severe) obesity due to excess calories; F17.200 Nicotine dependence, unspecified, uncomplicated; F31.9 Bipolar disorder, unspecified; F41.9 Anxiety disorder, unspecified; Z68.32 Body mass index [BMI] 32.0-32.9, adult; Z79.1 Long term (current) use of non-steroidal anti-inflammatories (NSAID); Z79.82 Long term (current) use of aspirin; Z79.899 Other long term (current) drug therapy; Z90.79 Acquired absence of other genital organ(s); Z98.84 Bariatric surgery status
CPT/HCPCS: 94640 ×4; 80048 ×2; 85025; 85027; 74177; 43249; G0378 ×3; S4990 ×2; Q9967; J2470 ×2; C1726; 96374; 99285

== ENCOUNTER 2024-03-11 14:59 | Emergency (ER) | payer MEDICARE ==
[2024-03-11 15:08] VITALS: TEMP 98.2
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
[2024-03-11 16:23] LABS: Basophils % (A) 0 %; Eosinophils % (A) 0 %; HCT 39.7 % (39.0-53.0); HGB 12.5 gm/dL (13.0-17.5); Hypochromasia Moderate; Lymphocytes # (A) 1.4 k/uL (1.0-4.8); Lymphocytes % (A) 13 %; MCH 31.8 pg (25.0-35.0); MCHC 31.5 g/dL (31.0-37.0); MCV 100.9 fL (80.0-100.0); Macrocytosis Slight; Monocytes # (A) 0.6 k/uL (0-1.0); Monocytes % (A) 5 %; Neutrophils # (A) 8.6 k/uL (1.3-7.7); Neutrophils % (A) 80 %; Platelet Count 343 k/uL (150-450); RBC 3.94 m/uL (4.30-5.90); RDW 14.3 % (11.5-15.5); WBC 10.8 k/uL (3.8-10.6)
[2024-03-11 16:24] LABS: Appearance,Urine Clear (Clear); Bilirubin,Urine Negative (Negative); Blood,Urine Negative (Negative); Color,Urine Colorless; Glucose,Urine (UA) Negative (Negative); Ketones,Urine Negative (Negative); Leukocyte Esterase,Urine Negative (Negative); Nitrite,Urine Negative (Negative); Protein,Urine Negative (Negative); Specific Gravity,Urine 1.005 (1.001-1.035); Urobilinogen,Urine <2.0 mg/dL (<2.0)
[2024-03-11] MEDS: SODIUM CHLORIDE 0.9% 1,000 ML IV STA (16:29)
[2024-03-11] MEDS: MORPHINE SULFATE 4 MG/ML SYRINGE IVP STA (16:29)
[2024-03-11 16:31] VITALS: PULSE 73; RESP 18
[2024-03-11 16:33] LABS: ALT 60 U/L (4-49); AST 85 U/L (17-59); African American GFR (CKD) 88 (>60 ml/min/1.73 sqM); Albumin 3.6 g/dL (3.5-5.0); Alkaline Phosphatase 91 U/L (38-126); Anion Gap -1 mmol/L; Blood Urea Nitrogen 23 mg/dL (9-20); Calcium 9.6 mg/dL (8.4-10.2); Carbon Dioxide 30 mmol/L (22-30); Chloride 107 mmol/L (98-107); Glucose 121 mg/dL (74-99); Magnesium 2.2 mg/dL (1.6-2.3); Non-African American GFR(CKD) 76 (>60 ml/min/1.73 sqM); Phosphorus 4.1 mg/dL (2.5-4.5); Potassium 4.6 mmol/L (3.5-5.1); Sodium 136 mmol/L (137-145); Total Bilirubin 0.4 mg/dL (0.2-1.3); Total Protein 5.8 g/dL (6.3-8.2)
--- NOTE | 2024-03-11 16:35 | CT ---
EXAMINATION TYPE: CT brain alex wo con DATE OF EXAM: 03/11/2024 COMPARISON: None HISTORY: Fall, neck pain CT DLP: 1604.[address] of the brain was performed. The ventricles, basal cisterns and sulci overlying the cerebral convexities demonstrate mild enlargem ent. There is no evidence for intracranial hemorrhage or sulcal effacement. There is decreased attenuatio n about the periventricular white matter and deep white matter of both cerebral hemispheres, compatib le with chronic small vessel ischemia. No mass effects are seen. If symptoms persist consider MRI. Osseous calvarium is intact. IMPRESSION: 1. Age related atrophic and chronic small vessel ischemic change without acute intracranial process seen at this time. CT Cervical Spine: Unenhanced CT of the cervical spine was performed with bone and soft tissue window settings submitted . Coronal and sagittal reconstruction is obtained. There is normal alignment and prevertebral soft tissues. No evidence for acute cervical fracture . Scattered degenerative disc disease and spondylosis. Biapical scarring. IMPRESSION: 1. No evidence for acute fracture or subluxation of the cervical spine. [facility], , 03/11/2024 4:33 PM
[2024-03-11 16:42] LABS: NT-Pro-B-Type Natriuretic Pept 90 pg/mL
[2024-03-11 16:44] LABS: Partial Thromboplastin Time 21.9 sec (22.0-30.0); Prothrombin Time 10.9 sec (10.0-12.5)
--- NOTE | 2024-03-11 17:15 | XR ---
EXAMINATION TYPE: XR wrist complete LT DATE OF EXAM: 03/11/2024 CLINICAL HISTORY: pain TECHNIQUE: Frontal, lateral and oblique images of the left wrist are obtained. COMPARISON: None. FINDINGS: There is no acute fracture/dislocation evident. Moderate degenerative neural first carpal metacarpal joint space. The overlying soft tissue appears unremarkable. IMPRESSION: There is no acute fracture or dislocation seen. ICD 10 NO FRACTURE, INITIAL EVALUATION [facility], , 03/11/2024 5:12 PM
--- NOTE | 2024-03-11 17:15 | XR ---
EXAMINATION TYPE: XR shoulder complete LT DATE OF EXAM: 03/11/2024 CLINICAL HISTORY: pain COMPARISON: NONE TECHNIQUE: Three views of the left shoulder are obtained. FINDINGS: There is no acute fracture/dislocation evident. The acromioclavicular and glenohumeral tima int spaces appear within normal limits. The visualized ribs are intact and unremarkable. IMPRESSION: 1. There is no acute fracture or dislocation. ICD 10 NO FRACTURE, INITIAL EVALUATION [facility], , 03/11/2024 5:13 PM
--- NOTE | 2024-03-11 17:16 | XR ---
EXAMINATION TYPE: XR chest 2V DATE OF EXAM: 03/11/2024 COMPARISON: 07/14/2023 HISTORY: Shortness of breath TECHNIQUE: Frontal and lateral views of the chest are obtained. FINDINGS: Scattered senescent parenchymal changes noted. Hyperinflation compatible with COPD. Increased density right medial lung base with elevation right hemidiaphragm which may be chronic in n ature. Developing infiltrate is difficult to exclude and clinical correlation is advised. Heart size is stable. Mediastinal structures are stable and grossly unremarkable. No evidence for hilar prominence. Degenerative changes dorsal spine. IMPRESSION: 1. Increased density right medial lung base with elevation right hemidiaphragm which may be chronic i n nature. Developing infiltrate is difficult to exclude and clinical correlation is advised. [facility], , 03/11/2024 5:14 PM
--- NOTE | 2024-03-11 17:18 | XR ---
EXAMINATION TYPE: XR Hip LT and AP Pelvis DATE OF EXAM: 03/11/2024 CLINICAL HISTORY: pain TECHNIQUE: AP and frogleg views of the left hip are obtained. Single view pelvis is also obtained. COMPARISON: None. FINDINGS: There is no acute fracture/dislocation evident. The joint space appears within normal li mits. The overlying soft tissue appears unremarkable. IMPRESSION: 1. There is no acute fracture or dislocation.ICD 10 NO FRACTURE, INITIAL EVALUATION [facility], , 03/11/2024 5:16 PM
[2024-03-11] MEDS: ACET/COD 300 MG/30 MG STARTER PACK 6 TAB BTL PO STA (18:47)
[2024-03-11] MEDS: IBUPROFEN 600 MG STARTER PACK 4 TAB BTL PO STA (18:48)
[2024-03-11 19:09] VITALS: BP 124/79
== END 2024-03-11 19:08 | disposition home or self-care (01) ==
LOC: EC 14:59
CPT/HCPCS: 36415; 70450; 71046; 72125; 73502; 80053; 81003; 83605; 83735; 83880; 84100; 84484; 85025; 85610; 85730; 93005; 96361; 96374; 99285

== ENCOUNTER → 2024-09-10 | Outpatient (CLI) | payer MEDICARE | END | disposition home or self-care (01) | LOC: LABPAT 15:31 | PROVIDERS: ATTEND Orthopaedic Surgery | DX: Z01.818 Encounter for other preprocedural examination (principal); Z22.322 Carrier or suspected carrier of Methicillin resistant Staphylococcus aureus | CPT/HCPCS: 87070 ==

== ENCOUNTER 2024-09-27 10:59 | Inpatient (IN) | payer MEDICARE ==
--- NOTE | 2024-09-26 22:15 | HP ---
HISTORY AND PHYSICAL DATE OF SURGERY: 09/27/2024. HISTORY OF PRESENT ILLNESS: Aron Campbell is a 59-year-old gentleman seen with symptomatic right knee osteoarthritis. After having treatment options discussed, he elected to proceed with right total knee arthroplasty. Consent regarding the procedure was obtained. Medical clearance provided by Dr. Donaldo Solis. PAST MEDICAL HISTORY: Hypertension, hyperlipidemia, hypothyroidism. PAST SURGICAL HISTORY: Right knee arthroscopy. DAILY MEDICATIONS: 1. Levothyroxine. 2. [place]. 3. Meloxicam. 4. Simvastatin. 5. Albuterol inhaler. 6. Synthroid. ALLERGIES: None. SOCIAL HISTORY: Smokes cigarettes. PHYSICAL EVALUATION OF THE RIGHT KNEE: His range of motion is -4/5 to 115 degrees. Tenderness, medial joint line. Crepitus, medial patellofemoral compartments with range of motion. Pain with patellofemoral compression. Ligaments stable. Hip rotation without pain. Distal neurovascular exam intact. IMAGING STUDIES: Right knee radiographs revealed severe osteoarthritic changes. IMPRESSION: 1. Right knee osteoarthritis. 2. Hypertension. 3. Hyperlipidemia. 4. Hypothyroidism. PLAN: Right total knee arthroplasty. MMODL / IJN: [id number] /
[~2024-09-27 10:59] MED LIST changes: -DEXAMETHASONE SOD PHOSPHATE 4 MG/ML 1 ML VIAL IV ONE; -LACTATED RINGERS 1,000 ML IV SCH; -ONDANSETRON 4 MG/2 ML VIAL IVP ONE; -SCOPOLAMINE 1 MG/72 HR PATCH TRANSDERM ONE; +TRANEXAMIC 1,000 MG/100ML-NACL 1,000 MG in SALINE 1 100ML.BAG IVPB PRN; -droPERidol 5 MG/2 ML VIAL IVP ONE; +fentaNYL (PF) 50 MCG/ML 2 ML AMP IVP PRN
[2024-09-27] MEDS: IV FLUID CONTINUATION 1,000 ML IV ONE (11:14)
[2024-09-27] MEDS: DEXAMETHASONE SOD PHOSPHATE 4 MG/ML 1 ML VIAL IV ONE (11:41)
[2024-09-27] MEDS: ONDANSETRON 4 MG/2 ML VIAL IVP ONE (11:41)
[2024-09-27] MEDS: ACETAMINOPHEN TAB 500 MG TAB PO PRN (11:41)
[2024-09-27] MEDS: MELOXICAM 7.5 MG TAB PO PRN (11:41)
[2024-09-27] MEDS: LACTATED RINGERS 1,000 ML IV SCH ×2 (11:42→17:56)
[2024-09-27] MEDS: MIDAZOLAM 2 MG/2 ML VIAL IV PRN (11:53)
--- NOTE | 2024-09-27 12:59 | P.ANPRN ---
Procedure Note - Anesthesia - Nerve Block Performed Right Adductor Canal Infusion Time Out Performed: Yes (1151) Date of Procedure: 09/27/24 Location of Patient: PreOp Indication: Acute Post-Operative Pain, Dx/Pain Location (Right knee), Requested by Surgeon Specifically requested for management of pain by DrAmeena: Paul Knutson Sedation Type: Sedate with meaningful contact maintained Preparation: Sterile Prep, Sterile Dressing Position: Supine Catheter: Indwelling Needle Types: [place] Needle Gauge: 18 Ultrasound used to visualize needle placement: Yes Ultrasound used to observe medication spread: Yes Injectate: 0.5% Ropivacaine (see comment for volume) (20 cc + 10 cc of N saline) Blood Aspirated: No Pain Paresthesia on Injection Noted: No Resistance on Injection: Normal Image Stored and Saved: Yes Events: Uneventful and Well Tolerated Right iPack Single Time Out Performed: Yes (1151) Date of Procedure: 09/27/24 Location of Patient: PreOp Indication: Acute Post-Operative Pain, Dx/Pain Location (Right knee), Requested by Surgeon Specifically requested for management of pain by DrAmeena: Paul Knutson Sedation Type: Sedate with meaningful contact maintained Preparation: Sterile Prep Position: Left Lateral Catheter: None Needle Types: [place] Needle Gauge: 21 Ultrasound used to visualize needle placement: Yes Ultrasound used to observe medication spread: Yes Injectate: 0.5% Ropivacaine (see comment for volume) (20 cc + 10cc of Normal saine) Blood Aspirated: No Pain Paresthesia on Injection Noted: No Resistance on Injection: Normal
[2024-09-27] MEDS ORDERED: TRANEXAMIC 1,000 MG/100ML-NACL PREMIX BAG ONE (13:11)
[2024-09-27] MEDS ORDERED: HYDROmorphone (PF) 1 MG/ML ONE (13:11)
[2024-09-27] MEDS ORDERED: ROCURONIUM 10 MG/ML (5 ML VIAL) IV ONE (13:11)
[2024-09-27] MEDS ORDERED: NEOSTIGMINE 1 MG/ML 10 ML VIAL ONE (13:11)
[2024-09-27] MEDS ORDERED: SODIUM CHLORIDE 0.9% (PF) 10 ML VIAL ONE (13:11)
[2024-09-27] MEDS ORDERED: PROPOFOL 10 MG/ML 20 ML VIAL IV ONE (13:11)
[2024-09-27] MEDS ORDERED: ROPIVACAINE 5 MG/ML 30 ML VIAL ONE (13:11)
[2024-09-27] MEDS ORDERED: fentaNYL (PF) 50 MCG/ML 2 ML AMP ONE (13:11)
[2024-09-27] MEDS ORDERED: GLYCOPYRROLATE 0.2 MG/ML 2 ML VIAL ONE (13:11)
[2024-09-27] MEDS ORDERED: SUGAMMADEX SODIUM 100 MG/ML SYR IV ONE (13:11)
[2024-09-27] MEDS ORDERED: LIDOCAINE 1% INJ 10MG/ML (20 ML MDV) ONE (13:11)
[2024-09-27] MEDS: ceFAZolin 2 GM in DEXTROSE 5% IN WATER 50 ML IVPB PRN (13:16)
[2024-09-27] MEDS: ceFAZolin 1,000 MG in SODIUM CHLORIDE 0.9% 1,000 ML IRRIGATION ONE ×4 (13:16)
[2024-09-27] MEDS: LACTATED RINGERS 1,000 ML IV ONE (14:47)
--- NOTE | 2024-09-27 14:59 | P.OP ---
Date of Procedure: 09/27/24 Preoperative Diagnosis: Right knee osteoarthritis Postoperative Diagnosis: Right knee osteoarthritis Procedure(s) Performed: Right total knee arthroplasty Implants: 1. DePuy attune size 6 right cruciate retaining cemented femur 2. DePuy attune size 6 fixed-bearing cemented tibial baseplate 3. DePuy attune size 6 fixed-bearing cruciate retaining 7 mm polyethylene tibial insert 4. DePuy attune 35 mm all polyethylene cemented patella Anesthesia: regional (Adductor canal catheter, iPAQ block), spinal Surgeon: Paul Knutson Sql Data Analyst #1: Michael Sam Estimated Blood Loss (ml): 35 Pathology: none sent Condition: stable Disposition: PACU Indications for Procedure: 59-year-old gentleman seen with symptomatic right knee osteoarthritis. After having treatment options discussed, he elected to proceed with right total knee arthroplasty. Operative Findings: See description of procedure Description of Procedure: Patient was taken to the operative suite after having an adductor canal catheter placed by the department of anesthesia. Patient underwent a spinal anesthetic by the department of anesthesia. Patient was given preoperative IV intake antibiotics and TXA. A well-padded tourniquet was placed about the right lower extremity. The lower extremity was then prepped and draped in the normal sterile orthopedic fashion. The extremity was elevated, a tourniquet was insufflated to 300. A standard anterior incision was made sharply through skin. Dissection was taken down through the subcutaneous soft tissues down to the extensor mechanism. A medial arthrotomy was performed, patella was everted and knee was flexed. There was advanced osteoarthritis noted. I introduced my distal intramedullary femoral drill. I then introduced the distal femoral cutting jig. Rahul LY secured the cutting jig with 2 pins. I held retractors in position while Rahul LY performed the distal femoral resection through the guide area we now removed her distal femoral cutting guide. We now placed our 4-in-1 femoral cutting block and positioned and it was secured with 2 pins by Rahul LY while I held the block in position. The distal femoral finishing was now completed. A proximal tibial cutting guide was positioned. I held the guide in the appropriate position with both hands while Rahul LY inserted stabilizing pins into the guide. Proximal tibial cut was made. We now placed a trial femoral component into position, along with an appropriate size tibial tray and insert. We now took the knee through range of motion and had full extension good flexion and good overall soft tissue balance noted. The patella was everted and stabilized with 2 towel clips held by Rahul LY while I performed a flush with patellar quad tendon utilizing a fresh sawblade. We templated the patella, appropriate drill holes were made. An appropriate trial patella was positioned, knee was taken through full range of motion with the patella tracking very nicely. The trial patella was removed. Drill holes were made through the femoral component. All trial components were removed after marking off the appropriate rotation of the tibia. Retractors were now positioned along the proximal tibia. An appropriate keel punch was made with the appropriate size tibial guide by myself on Rahul LY assisted by holding retractors. At this point appropriate size implants were chosen and opened. The joint was irrigated copiously with pulse lavage mechanical irrigation. The wound was irrigated with pulse lavage mechanical irrigation. We mixed antibiotic methylmethacrylate. We placed the knee into flexion. We placed multiple retractors assisted by Rahul LY to expose the proximal tibia. Once the methyl methacrylate was ready, the tibial component was cemented into place removing any excess methylmethacrylate form by both myself and Rahul LY. The femoral component was cemented into place removing the removing any excess methylmethacrylate performed by both myself and Rahul LY. We then inserted the appropriate size polyethylene tibial insert. We made sure that it was locked into position. We took the knee into full extension, and then back in a flexion making sure we had removed any excess methylmethacrylate. The patellar component was then cemented down and secured with clamp. Excess methylmethacrylate removed. We kept the knee in full extension, patellar clamp in position until methylmethacrylate had hardened. Once it had hardened the patellar clamp was removed. The knee was taken through full range of motion. The patella tracked nicely. There was good soft tissue balancing. The tourniquet was now released. Additional hemostasis was achieved via electrocautery. A second gram of TXA was given. The wound again was irrigated with pulse lavage mechanical irrigation. The extensor mechanism was repaired with Ethibond suture. We checked the repair with range of motion and it was stable. The subcutaneous soft tissues were repaired with Vicryl in layers. The skin was approximated with pernio/Dermabond. Sterile dressings were applied followed by loose web roll and Fidel bandage. The patient was transferred to a bed, and taken to recovery in stable and satisfactory condition. Rahul LY assisted with this complex procedure.
[2024-09-27] MEDS ORDERED: NALOXONE 0.4 MG/ML 1 ML VIAL IV PRN (15:00)
[2024-09-27] MEDS ORDERED: HYDROmorphone 0.5 MG/0.5 ML SYRINGE IVP PRN (15:00)
[2024-09-27] MEDS ORDERED: HYDROcodone/APAP 5-325MG 1 EACH TAB PO PRN (15:00)
[2024-09-27] MEDS ORDERED: ROPIVACAINE 1,100 MG, SODIUM CHLORIDE 0.9% 500 ML 330 ML, EMPTY PAIN BALL 1 EACH MISCELLANE PRN (15:45)
--- NOTE | 2024-09-27 16:21 | XR ---
EXAMINATION TYPE: XR knee limited RT DATE OF EXAM: 09/27/2024 3:59 PM COMPARISON: None CLINICAL INDICATION: Male, 59 years old with history of Evaluation for Postop abnormality and alignme nt; PHH, pain TECHNIQUE: XR knee limited RT 2 views submitted. FINDINGS: Status post total knee arthroplasty changes with hardware in appropriate alignment and in tact. No evidence of fracture. Subcutaneous lucencies and lucencies within the joint consistent with surgical changes. IMPRESSION: Status post total knee arthroplasty changes with hardware intact and appropriate alignment. No fractu res identified. [facility], , 09/27/2024 4:18 PM
[2024-09-27] MEDS: HYDROmorphone 0.5 MG/0.5 ML SYRINGE IVP PRN (18:42)
[2024-09-27] MEDS: SENNOSIDES-DOCUSATE SODIUM 1 EACH TAB PO SCH (20:32)
[2024-09-27] MEDS: ASPIRIN 81 MG PO SCH (20:32)
[2024-09-27] MEDS: ceFAZolin 2 GM in DEXTROSE 5% IN WATER 50 ML IVPB SCH (21:15)
[2024-09-27] MEDS: ONDANSETRON 4 MG/2 ML VIAL IVP PRN (21:59)
[2024-09-27] MEDS: HYDROcodone/APAP 7.5-325MG 1 EACH TAB PO PRN (22:36)
[2024-09-28] MEDS ORDERED: ALBUTEROL HFA INHALER INHALATION PRN (02:32)
[2024-09-28] MEDS ORDERED: IPRATROPIUM 0.5 MG/2.5 ML NEBU INHALATION PRN (02:32)
[2024-09-28] MEDS: ALBUTEROL NEBULIZED 2.5 MG/3 ML INHALATION PRN (03:09)
[2024-09-28] MEDS: HYDROmorphone 2 MG/ML 1 ML SYRINGE IVP PRN (03:19)
[2024-09-28] MEDS: LEVOTHYROXINE 137 MCG TAB PO SCH (06:31)
--- NOTE | 2024-09-28 07:51 | P.PN ---
Progress Note - Text Progress Note Date: 09/28/24 Postoperative day # 1 status post total knee arthroplasty, on adductor canal perineural catheter placed for postoperative analgesia. Ropivacaine 0.2% 8 mL per hour through ON-Q pump continuous infusion. Pain is well controlled. On visual analog scale 1/10 Patient is taking PRN oral pain medications. Catheter site: Looks Ok. There is no erythema or tenderness. Continue with the current pain management plan and will follow.
[2024-09-28 08:16] LABS: Basophils # (A) 0.02 X 10*3/uL (0.00-0.10); Basophils % (A) 0.2 %; Eosinophils # (A) 0 X 10*3/uL (0.04-0.35); Eosinophils % (A) 0 %; HCT 37.9 % (39.6-50.0); HGB 11.8 g/dL (13.0-17.0); Lymphocytes # (A) 0.88 X 10*3/uL (0.90-5.00); Lymphocytes % (A) 8.2 %; MCHC 31.1 g/dL (32.0-37.0); MCV 102.7 FL (80.0-97.0); Mean Platelet Volume 9.6 FL (9.5-12.2); Monocytes # (A) 0.87 X 10*3/uL (0.20-1.00); Monocytes % (A) 8.1 %; NRBC Per 100 WBC 0 X 10*3/uL (0.00-0.01); Neutrophils # (A) 8.96 X 10*3/uL (1.80-7.70); Neutrophils % (A) 83.1 %; Platelet Count 245 X 10*3/uL (140-440); RBC 3.69 X 10*6/uL (4.40-5.60); RDW 14.8 % (11.5-14.5); WBC 10.77 X 10*3/uL (4.50-10.00)
[2024-09-28] MEDS: clonazePAM 1 MG TAB PO SCH (09:08)
[2024-09-28] MEDS: MULTIVITAMINS, THERA 1 EACH TAB PO SCH (09:08)
[2024-09-28] MEDS: LITHIUM CARBONATE ER 450 MG TABLET.ER PO SCH (09:09)
[2024-09-28] MEDS: lamoTRIgine 100 MG TAB PO SCH (09:09)
[2024-09-28] MEDS: PANTOPRAZOLE 40 MG TABLET PO SCH (09:09)
[2024-09-28] MEDS ORDERED: IPRATROPIUM-ALBUTEROL 3 ML NEB INHALATION PRN (10:07)
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
--- NOTE | 2024-09-28 11:42 | XR ---
EXAMINATION TYPE: XR chest 1V portable DATE OF EXAM: 09/28/2024 11:22 AM COMPARISON: Chest radiographs from 06/17/2024 TECHNIQUE: XR chest 1V portable Portable AP radiograph of the chest. CLINICAL INDICATION:Male, 59 years old with history of copd; FINDINGS: Lungs/Pleura: There is no evidence of pleural effusion, focal consolidation, or pneumothorax. Chroni c elevation the right hemidiaphragm. Medial right basilar linear scarring and/or atelectasis. Pulmonary vascularity: Unremarkable. Heart/mediastinum: Cardiomediastinal silhouette is unremarkable. Atherosclerotic calcifications are seen in the aorta. Musculoskeletal: No acute osseous pathology. Other: Vascular calcifications within the right axilla. IMPRESSION: Chronic changes without evidence for acute process. [facility], , 09/28/2024 11:39 AM
[2024-09-28] MEDS: IPRATROPIUM-ALBUTEROL 3 ML NEB INHALATION SCH (12:09)
--- NOTE | 2024-09-28 13:03 | P.PN ---
Subjective Progress Note Date: 09/28/24 Principal diagnosis: Status post right total knee arthroplasty Patient examined today at bedside, his was also present. Patient did okay with therapy today. He states he is dealing with some increase in pain, he is requiring IV Dilaudid at this time. Denies any headaches, lightheadedness, chest pain or shortness of breath Objective - Vital Signs Vital signs: Vital Signs Temp 98.9 F 09/28/24 07:18 Pulse 80 09/28/24 12:20 Resp 15 09/28/24 07:18 BP 123/80 09/28/24 07:18 Pulse Ox 89 L 09/28/24 07:18 FiO2 50 09/27/24 16:20 Intake & Output 09/27/24 09/28/24 09/28/24 18:59 06:59 18:59 Intake Total 1651 Output Total 35 Balance 1616 Weight 82.554 kg Intake: IV 1651 Output: Estimated Blood Loss 35 Other: Voiding Method Urinal # Voids 3 - Exam Right lower extremity: Incision is clean, dry, and intact. The foam dressing is in good condition. There is minimal soft tissue swelling and ecchymosis surrounding the medial and lateral aspects of the incision. Calf is soft, no tenderness with palpation. Plantar flexion, dorsiflexion, EHL, FHL are intact. Sensory exam to light touch throughout the extremity is intact, dorsal pedis pulses 2+. - Labs CBC & Chem 7: 09/28/24 02:46 Labs: Abnormal Lab Results - Last 24 Hours (Table) 09/28/24 Range/Units 02:46 WBC 10.77 H (4.50-10.00) X 10*3/uL RBC 3.69 L (4.40-5.60) X 10*6/uL Hgb 11.8 L (13.0-17.0) g/dL Hct 37.9 L (39.6-50.0) % MCV 102.7 H (80.0-97.0) FL MCHC 31.1 L (32.0-37.0) g/dL RDW 14.8 H (11.5-14.5) % Neutrophils # 8.96 H (1.80-7.70) X 10*3/uL Lymphocytes # 0.88 L (0.90-5.00) X 10*3/uL Eosinophils # 0 L (0.04-0.35) X 10*3/uL Assessment and Plan Assessment: Postoperative day #1 status post right total knee arthroplasty Plan: Pain control, continue with current medications DVT prophylaxis, continue with current medications Wound care instructions discussed, this to include icing and elevating along with bandaging instructions Encourage incentive spirometer Weight-bear as tolerated with walker Continue PT/OT Internal medicine recommendations appreciated Discharge planning: Anticipate discharge to home with home health care on 09/29/2024 Time with Patient: Less than 30
[2024-09-28] MEDS: NICOTINE 21MG/24HR PATCH TRANSDERM SCH (13:08)
[2024-09-28] MEDS: LORATADINE 10 MG TAB PO SCH (13:17)
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
[2024-09-28] MEDS: CITALOPRAM HYDROBROMIDE 20 MG TAB PO SCH (17:35)
[2024-09-28] MEDS: CHOLECALCIFEROL 125 MCG (5000 IU) TABLET PO SCH (17:35)
[2024-09-28] MEDS: SYMBICORT 160-4.5 MCG INHALER INHALATION SCH (20:17)
[2024-09-28] MEDS: OLANZapine 5 MG TAB PO SCH (21:55)
[2024-09-29 08:49] VITALS: BP 111/76; RESP 18; TEMP 98.2
--- NOTE | 2024-09-29 10:43 | P.PN ---
Subjective Progress Note Date: 09/29/24 Principal diagnosis: Status post right total knee arthroplasty Patient examined today at bedside, his was also present. Patient is doing better with regards to pain control today. Denies any headaches, lightheadedness, chest pain or shortness of breath Objective - Vital Signs Vital signs: Vital Signs Temp 98.2 F 09/29/24 07:56 Pulse 94 09/29/24 08:17 Resp 18 09/29/24 07:56 BP 111/76 09/29/24 07:56 Pulse Ox 91 L 09/29/24 08:03 FiO2 50 09/27/24 16:20 Intake & Output 09/28/24 09/29/24 09/29/24 18:59 06:59 18:59 Other: Voiding Method Toilet # Voids 7 3 - Exam Right lower extremity: Incision is clean, dry, and intact. The foam dressing is in good condition. There is minimal soft tissue swelling and ecchymosis surrounding the medial and lateral aspects of the incision. Calf is soft, no tenderness with palpation. Plantar flexion, dorsiflexion, EHL, FHL are intact. Sensory exam to light touch throughout the extremity is intact, dorsal pedis pulses 2+. - Labs CBC & Chem 7: 09/28/24 02:46 Assessment and Plan Assessment: Postoperative day #2 status post right total knee arthroplasty Plan: Pain control, plan for discharge home on [place] and stool softeners DVT prophylaxis, aspirin 81 mg twice a day for 30 days Wound care instructions discussed, this to include icing and elevating along wit h bandaging instructions Encourage incentive spirometer Weight-bear as tolerated with walker Home PT/nursing after discharge Internal medicine recommendations appreciated Discharge planning: Stable for discharge today Time with Patient: Less than 30
--- NOTE | 2024-09-29 10:47 | P.DS ---
Providers Date of admission: 09/27/24 11:00 Expected date of discharge: 09/29/24 Attending physician: Paul Knutson Consults: 09/27/24 15:00 Consult Physician Routine Consulting Provider: Donaldo Solis Reason/Comments: Medical management Do you want consulting provider notified?: Yes Primary care physician: Donaldo Solis Hospital Course: Date of admission: 09/27/2024 Date of discharge: 09/29/2024 Admission diagnosis: Status post right total knee arthroplasty Discharge diagnosis: Same Attending physician: Dr. Knutson Surgical procedures: Right total knee arthroplasty Brief history: Patient is a 59-year-old male with a history of progressive primary right knee osteoarthritis. At this point patient has failed conservative treatment measures and has opted to proceed with a elective right total knee arthroplasty. Hospital course: Details of patient's surgery can be found in operative report. Patient tolerated the procedure well and was subsequently transported to orthopedic floor. Patient's orthopeidc and medical care was provided daily. Patient had daily laboratory tests performed for evaluation of overall blood counts. Patient had daily physical therapy to include strengthening range of motion as well as education with walker ambulation. Patient was treated with aspirin for their postoperative DVT prophylaxis during their inpatient stay. Ranhco chin was noted to have a relatively uneventful postoperative course. Patient reported satisfactory pain control with oral pain medications by postoperative day 2. Patient showed satisfactory progress with physical therapy. Patient moved steadily through the program and had no difficulty meeting the goals by postoperative day 2. Given patient's otherwise satisfactory course and having met physical therapy goals, plan is to discharge patient home on postoperative day 2. Discharge condition/disposition: Patient will be discharged home in stable condition. Discharge medications: Instructions are given on resumption of patient's normal daily medications per primary care recommendation, in addition patient will be prescribed [place] 7.5 mg / 325 mg, senna S, aspirin 81 mg. Discharge instructions: 1. Wound care and infection precautions, keep incision dry and covered while showering, no lotions, creams, moisturizers. No soaking, tubs, pools, hottubs. Do not scrub over the incision. 2. Weight-bear as tolerated with walker / cane until follow-up. 3. Ice and elevate when necessary. Do not exceed 20 minutes per hour with ice pack. 4. Utilize compression sleeve until seen at first follow up appointment. 5. Visiting nursing care. 6. Home physical therapy including home CPM. 7. Pain meds and anticoagulants per prescription. 8. Pain medication has potential to cause constipation. Increase oral fluid and fiber intake. Contact primary care provider if you have not had a bowel movement within 48 hours after discharge 9. No anti-inflammatory medication until discussed at first post operative visit, this including Motrin, Aleve, Mobic, Diclofenac. 10. Follow up in office at 2 weeks postop with Rahul Sam PA-C/[place] 11. Follow up with your primary care doctor 7-10 days after discharge. 12. Contact [facility] with any questions, . Procedures: Right total knee arthroplasty Patient Condition at Discharge: Good Plan - Discharge Summary Discharge Rx Participant: Yes New Discharge Prescriptions: New Sennosides/Docusate Sodium [Senna-S 8.6-50 mg Tablet] 2 each PO DAILY PRN #30 tablet PRN Reason: Constipation Aspirin [Adult Low Dose Aspirin EC] 81 mg PO BID #60 tab HYDROcodone/APAP 7.5-325MG [[place] 7.5] 1 each PO Q6HR PRN #28 tab PRN Reason: Pain No Action lamoTRIgine [LaMICtal] 100 mg PO DAILY clonazePAM [KlonoPIN] 1 mg PO TID@0800,1700,2100 [place] Carbonate ER [Lithobid] 450 mg PO BID@0800,1700 OLANZapine [ZyPREXA] 5 mg PO HS Citalopram Hydrobromide [CeleXA] 20 mg PO DAILY@1700 Omeprazole [PriLOSEC] 40 mg PO DAILY Ipratropium [place] 0.2 mg INHALATION RT-QID PRN PRN Reason: Shortness Of Breath Acetaminophen [Tylenol Arthritis] 650 mg PO Q8H PRN PRN Reason: Pain Magnesium(Unknown Dose) 1 dose PO HS Albuterol Inhaler [Ventolin Hfa Inhaler] 2 puff INHALATION RT-QID PRN PRN Reason: Shortness Of Breath Albuterol Nebulized [Ventolin Nebulized] 2.5 mg INHALATION RT-QID PRN PRN Reason: Shortness Of Breath Cholecalciferol [Vitamin D3 (125 Mcg = 5000 Iu)] 125 mcg PO DAILY@1700 Levothyroxine Sodium [Synthroid] 137 mcg PO DAILY Loratadine 10 mg PO DAILY traMADol HCL 50 mg PO Q12H Discharge Medication List Citalopram Hydrobromide [CeleXA] 20 mg PO DAILY@1700 12/14/15 [History] [place] Carbonate ER [Lithobid] 450 mg PO BID@0800,1700 12/14/15 [History] OLANZapine [ZyPREXA] 5 mg PO HS 12/14/15 [History] clonazePAM [KlonoPIN] 1 mg PO TID@0800,1700,2100 12/14/15 [History] lamoTRIgine [LaMICtal] 100 mg PO DAILY 12/14/15 [History] Albuterol Inhaler [Ventolin Hfa Inhaler] 2 puff INHALATION RT-QID PRN 04/03/21 [History] Omeprazole [PriLOSEC] 40 mg PO DAILY 04/03/21 [History] Albuterol Nebulized [Ventolin Nebulized] 2.5 mg INHALATION RT-QID PRN 08/27/22 [History] Ipratropium [place] 0.2 mg INHALATION RT-QID PRN 12/27/22 [History] Cholecalciferol [Vitamin D3 (125 Mcg = 5000 Iu)] 125 mcg PO DAILY@1700 07/15/23 [History] Acetaminophen [Tylenol Arthritis] 650 mg PO Q8H PRN 01/07/24 [History] Magnesium(Unknown Dose) 1 dose PO HS 01/07/24 [History] Levothyroxine Sodium [Synthroid] 137 mcg PO DAILY 01/08/24 [History] Loratadine 10 mg PO DAILY 01/08/24 [History] traMADol HCL 50 mg PO Q12H 09/22/24 [History] Aspirin [Adult Low Dose Aspirin EC] 81 mg PO BID #60 tab 09/29/24 [Rx] HYDROcodone/APAP 7.5-325MG [[place] 7.5] 1 each PO Q6HR PRN #28 tab 09/29/24 [Rx] Sennosides/Docusate Sodium [Senna-S 8.6-50 mg Tablet] 2 each PO DAILY PRN #30 tablet 09/29/24 [Rx] Follow up Appointment(s)/Referral(s): Donaldo Solis DO [Primary Care Provider] - 1 Week [facility] [NON-STAFF] - As Needed (Continuous Passive Motion knee machine and cane) [facility], [NON-STAFF] - As Needed Michael Sam, PAC [PHYSICIAN WELT TREATER] - 2 Weeks Patient Instructions/Handouts: Knee Replacement (GEN) Activity/Diet/Wound Care/Special Instructions: Orthopedic Discharge Instructions: 1. Wound care and infection precautions, keep incision dry and covered while showering, no lotions, creams, moisturizers. No soaking, pools, hot tubs. Do not scrub over incision. 2. Weight-bear as tolerated with walker / cane until follow-up. 3. Ice and elevate when necessary. Do not exceed 20 minutes per hour with ice pack. 4. Utilize compression sleeve until seen at first follow up appointment. 5. Pain meds and anticoagulants per prescription. 6. Pain medication has potential to cause constipation. Increase oral fluid and fiber intake. Contact primary care provider if you have not had a bowel movement within 48 hours after discharge. 7. No anti-inflammatory medication until discussed at first post operative visit, this including Motrin, Aleve, Mobic, Diclofenac. 8. Follow up in office at 2 weeks postop with Rahul Sam PA-C / Zac Rosas PA-C 9. Follow up with your primary care doctor 7-10 days after discharge. 10. Contact [facility] with any questions, . Keep incision clean, dry, intact. While showering, cover silver foam dressing with Saran wrap. Keep silver foam dressing on for 7 days. Silver foam dressing can be removed on 09/26/2024. Once dressing is removed, it is okay to shower directly over incision Discharge Disposition: HOME WITH HOME HEALTH SERVICES
--- NOTE | 2024-09-29 11:28 | P.PN ---
Subjective Progress Note Date: 09/29/24 09/28/24 This is a 59-year-old gentleman with past medical history significant for gastric sleeve, esophageal dysmotility, diaphragmatic hernia repair, nicotine dependence, hyperlipidemia, COPD and multiple other medical issues,admitted with right knee osteoarthritis status post right total knee arthroplasty, tolerated procedure well. Continues to have significant amount of pain, requiring both Dilaudid and [place] this morning in addition to his pain/q- pump. Currently requiring 2 L nasal cannula O2 to maintain O2 sats in the 90s. O2 sat on room air, 87 to 88%. Denies any chest pain, palpitations. Denies lightheadedness, dizziness or focal deficits. 09/29/2024 pain better controlled today. Chest x-ray performed yesterday reported chronic changes without evidence for acute process. Chronic elevation of the right hemidiaphragm.medial right basilar linear scarring and/or atelectasis.patient reports he has not been doing his incentive spirometer every hour. incentive spirometer up to 1500. Denies chest pain, palpitations or increase in shortness of breath. Maintaining O2 sats of 90 to 94% on 2 L nasal cannula. Declined nicotine patch yesterday. Ambulating to and from bathroom, tolerated exertion well, denies lightheadedness dizziness or focal deficits. Objective - Vital Signs Vital signs: Vital Signs Temp 98.2 F 09/29/24 07:56 Pulse 94 09/29/24 08:17 Resp 18 09/29/24 07:56 BP 111/76 09/29/24 07:56 Pulse Ox 91 L 09/29/24 08:03 FiO2 50 09/27/24 16:20 Intake & Output 09/28/24 09/29/24 09/29/24 18:59 06:59 18:59 Other: Voiding Method Toilet # Voids 7 3 - Exam PHYSICAL EXAM: VITAL SIGNS: [Reviewed] GENERAL: Alert and oriented x 3, sitting up in bed, no acute distress HEENT: Atraumatic, normocephalic, sclera anicteric ,conjunctivae normal. NECK: Supple, no JVD. CARDIOVASCULAR: S1, S2 regular. No murmur RESPIRATION: Unlabored, equal air entry, breath sounds diminished in the bases. No rhonchi or crackles. No bronchial breathing. ABDOMEN: Soft, nondistended, nontender, no guarding, positive bowel sounds LEGS: Right lower extremity dressing clean dry and intact with minimal edema/erythema. No calf tenderness, positive DP pulse. NERVOUS SYSTEM: Cranial N 2-12 grossly normal. No focal deficits. Strength and sensation grossly intact. Skin: Warm and dry, no rash - Labs CBC & Chem 7: 09/28/24 02:46 Assessment and Plan Assessment: Right knee osteoarthritis, status post right total knee arthroplasty Acute hypoxic respiratory failure, postoperative, expected outcome, secondary to suspected atelectasis, pain Chronic elevation of right hemidiaphragm reported per chest Xray. COPD,stable Nicotine dependence Gastroesophageal reflux disease History of hiatal hernia repair History of dysphagia, esophageal dysmotility dilated History of sleeve gastrectomy Obesity, BMI 29 Plan: Continue on current medication regimen ,monitoring and symptomatic treatment. Pain management and DVT prophylaxis per orthopedic surgery. Discharge planning in progress as per orthopedic surgery .Maintain aggressive pulmonary toileting, continue with incentive spirometer,nebulized bronchodilators and Symbicort as ordered ordered. Smoking cessation reinforced. Possible 2 L nasal cannula O2 at DC, if unable to wean off.-patient has been advised of no smoking with concurrent use of oxygen, including its risk/hazards.follow-up with PCP, Dr. Solis in 1 week. The impression and plan of care has been dictated as directed. : I performed a history and examination of this patient, discussed the same with the dictator. I agree with the dictator's note ,documented as a scribe. Any additional findings or plans will be noted.
--- NOTE | 2024-09-29 12:02 | CDI ---
Documentation Clarification Form Date: 09/29/2024 11:25:24 AM From: Palak Silva RN, CCDS Phone: [phone] Admit Date: 09/27/2024 11:00:00 AM Patient Name: Aron Campbell Visit Number: [id number] Discharge Date: ATTENTION: The Clinical Documentation Specialists (CDI) and [facility] Coding Staff appreciate your assistance in clarifying documentation. Please respond to the clarification below the line at the bottom and electronically sign. The CDI & [facility] Coding staff will review the response and follow-up if needed. Please note: Queries are made part of the Legal Health Record. If you have any questions, please contact the author of this message via ITS. Doctor. Randal Chavez Acute hypoxic respiratory failure, likely due to postop atelectatic changes lung bases is documented in the pulmonary consult on 09/28/24. Additional clarification is requested regarding the relationship, if any, that exists between the diagnosis and the procedure. History/Risk Factors: Hypertension, hyperlipidemia, hypothyroidism. COPD Patients Admitting Diagnosis: Right knee Osteoarthritis Post-Operative Diagnosis: Same Procedure performed: Right total knee arthroplasty Clinical Indicators: 59-year-old male present for elective right total knee arthropathy. O2 sat on room air, 87 to 88% currently requiring 2/L to maintain O2 sat in the 90s. 09/28 Chest X-Ray: Chronic elevation of the right hemidiaphragm. Medial right basilar linear scarring and/or atelectasis. Pulmonary vascularity: Unremarkable. Chronic changes without evidence for acute process. 09/28 (07:18) 123/80 89 15 89% 2/L NC 09/28 (19:19) 139/85 85 18 98.6 94% 2/L NC Treatment: Incentive Spirometry Q 1 HR DuoNeb Inhalation Q2 PRN Symbicort Inhalation BID Claritin 10MG PO Daily What relationship, if any, exists between the diagnosis of atelectasis and the procedure? [ x ] Atelectasis is not clinically significant and not a complication [ ] Atelectasis is clinically significant and not a complication [ ] Other please specify ____ [ ] Unable to determine (Template Last Revised: June 2024) MTDD
[2024-09-29 12:03] VITALS: PULSE 80
--- NOTE | 2024-09-29 16:45 | P.PN ---
Subjective Progress Note Date: 09/29/24 09/28/2024, the patient is being seen in consultation for COPD. The patient was noted to be having some hypoxemia. The patient is known to have COPD. Nevertheless, has not been oxygen dependent. He is currently on 2 L of oxygen by nasal cannula with a pulse ox of 96%. Chest x-ray was done and the patient has no evidence of any pleural effusion or focal consolidation. There is chronic elevation of the right hemidiaphragm. Otherwise no other cardiopulmonary abnormalities. The patient is complaining of pain in the right knee and the patient is receiving Dilaudid on a as needed basis. The patient also has a minimal amount of swelling/ecchymosis along the medial and lateral aspects of the incision in the right knee. Orthopedic surgery is on the case. Pulses are intact. He continues to receive pain control. He was started on DuoNeb nebulized treatments [id number]. He is also on Symbicort 2 puffs twice a day. Rest of the home medication resumed. No reported aspiration. No chest pain. No pleurisy. No hemoptysis. No altered mentation. Labs were noted. White cell count of 10.7 with a hemoglobin 11.8 and a platelet count of 245. 09/29/2024, the patient is being seen for a follow-up. Resting comfortably in bed. Using incentive spirometer. Pain is under better control. He remains on 2 L of oxygen by nasal cannula with a pulse ox of 91%. No other significant events overnight. The patient's cardiac rhythm remains sinus. He is currently on Symbicort and DuoNeb nebulized treatments [id number]. No chest pain. No cough or sputum production. No other significant events overnight. Surgical wound site over the right knee area is dry clean and intact. Objective - Vital Signs Vital signs: Vital Signs Temp 98.2 F 09/29/24 07:56 Pulse 94 09/29/24 08:17 Resp 18 09/29/24 07:56 BP 111/76 09/29/24 07:56 Pulse Ox 91 L 09/29/24 08:03 FiO2 50 09/27/24 16:20 Intake & Output 09/28/24 09/29/24 09/29/24 18:59 06:59 18:59 Other: Voiding Method Toilet # Voids 7 3 - Exam The patient appeared well nourished and normally developed. Vital signs as documented., Comfortable on 2 L of oxygen by nasal cannula Head exam is unremarkable. No scleral icterus or corneal arcus noted. Neck is without jugular venous distension, thyromegaly, or carotid bruits. Carotid upstrokes are brisk bilaterally. Lungs are clear to auscultation and percussion. Diminished breath sounds along with few scattered extra wheezes heard bilaterally. No signs of any significant respiratory distress. Cardiac exam reveals the PMI to be normally sized and situated. Rhythm is regular. First and second heart sounds normal. No murmurs, rubs or gallops. Abdominal exam reveals normal bowel sounds, no masses, no organomegaly and no aortic enlargement. Extremities show swelling in the right knee and incision is dry clean and intact. Pulses are present lower extremities bilaterally. Examination of the skin revealed no evidence of significant rashes, suspicious appearing nevi or other concerning lesions. Neurologically, the patient is awake and alert and the patient does not have any focal neurological deficit. Cranial nerves are essentially intact. - Labs CBC & Chem 7: 09/28/24 02:46 Assessment and Plan Plan: Right knee arthroplasty, patient is postop day #2. Patient continues to require pain control and the patient is seeing Dilaudid and he was also instructed to utilize icing along with leg elevation. Acute hypoxic respiratory failure, likely due to postop atelectatic changes lung bases. Patient is known to have chronic COPD and is currently on Dilaudid. No signs of any hypoventilation or respiratory compromise at this point. He is currently on 2 L of O2 nasal cannula. Chronic right hemidiaphragmatic elevation RA Obstructive sleep apnea Hypothyroidism Osteoarthritis Chronic smoker Plan Continue supportive care Encourage use of incentive spirometer Increase mobility DuoNeb nebulized treatments [id number] Symbicort 2 puffs twice a day Oxygen to be weaned off as tolerated to maintain saturation above 90% Provide incentive spirometer Minimize use of Dilaudid and continue with [facility] for pain control chest x-ray was reviewed Home medications resumed Will follow
--- NOTE | 2024-12-07 14:21 | CDI ---
Documentation Clarification Form Date: 12/07/2024 From: Michael Alvarado Admit Date: 09/27/2024 11:00:00 AM Patient Name: Aron Campbell Visit Number: [id number] Discharge Date: 09/29/2024 03:54:00 PM ATTENTION: The Clinical Documentation Specialists (CDI) and [facility] Coding Staff appreciate your assistance in clarifying documentation. Please respond to the clarification below the line at the bottom and electronically sign. The CDI & [facility] Coding staff will review the response and follow-up if needed. Please note: Queries are made part of the Legal Health Record. If you have any questions, please contact the author of this message via ITS. Dr. Eamon DO., Acute hypoxic respiratory failure, postoperative, expected outcome, secondary to suspected atelectasis, pain is documented per a 09/28 . Additional clarification regarding the cause of the post op respiratory failure is requested. History/Risk Factors: 59-year-old gentleman with past medical history significant for gastric sleeve, esophageal dysmotility, diaphragmatic hernia repair, nicotine dependence, hyperlipidemia, COPD and multiple other medical issues, admitted with right knee osteoarthritis. He elected to proceed with right total knee arthroplasty. Clinical Indicators: 09/28 consult: Acute hypoxic respiratory failure, postoperative, expected outcome, secondary to suspected atelectasis, pain 09/28 Pulm consult: Acute hypoxic respiratory failure, likely due to postop atelectatic changes lung bases. Patient is known to have chronic COPD and is currently on Dilaudid. No signs of any hypoventilation or respiratory compromise at this point. He is currently on 2 L of O2 nasal cannula. 09/29 Progress note: Acute hypoxic respiratory failure, postoperative, expected outcome, secondary to suspected atelectasis, pain, Chronic elevation of right hemidiaphragm reported per chest Xray. - 09/29/2024 pain better controlled today. Chest x-ray performed yesterday reported chronic changes without evidence for acute process. Chronic elevation of the right hemidiaphragm. medial right basilar linear scarring and/or atelectasis. patient reports he has not been doing his incentive spirometer every hour. incentive spirometer up to 1500. Denies chest pain, palpitations or increase in shortness of breath. Maintaining O2 sats of 90 to 94% on 2 L nasal cannula. 09/[address] Chavez: Acute hypoxic respiratory failure, likely due to postop atelectatic changes lung bases is documented in the Pulmonary consult on 09/28/24. Additional clarification is requested regarding the relationship, if any, that exists between the diagnosis and the procedure. [ x ] Atelectasis is not clinically significant and not a complication Treatment: Supplemental O2, Incentive Spirometer, Dilaudid. Please clarify the documentation related to Acute hypoxic respiratory failure, if known: [ ] Patient was weaned from mechanical ventilation in an expected timeframe following the procedure and Acute hypoxic respiratory failure has been ruled out. [ ] Acute hypoxic respiratory failure clinically present and is a complication of the surgical procedure [ ] Acute hypoxic respiratory failure is clinically present and is an expected outcome of the patients procedure [ x ] Other please specify __I would defer to regarding this pulmonary question MTDD
--- NOTE | 2024-12-09 14:52 | CDI ---
Date: 12/09/2024 From: Michael Alvarado Admit Date: 09/27/2024 11:00:00 AM Patient Name: Aron Campbell Visit Number: [id number] Discharge Date: 09/29/2024 03:54:00 PM ATTENTION: The Clinical Documentation Specialists (CDI) and [facility] Coding Staff appreciate your assistance in clarifying documentation. Please respond to the clarification below the line at the bottom and electronically sign. The CDI & [facility] Coding staff will review the response and follow-up if needed. Please note: Queries are made part of the Legal Health Record. If you have any questions, please contact the author of this message via ITS. Acute hypoxic respiratory failure, postoperative, expected outcome, secondary to suspected atelectasis, pain is documented per a 09/28 . Additional clarification regarding the cause of the post op respiratory failure is requested. History/Risk Factors: 59-year-old gentleman with past medical history significant for gastric sleeve, esophageal dysmotility, diaphragmatic hernia repair, nicotine dependence, hyperlipidemia, COPD and multiple other medical issues, admitted with right knee osteoarthritis. He elected to proceed with right total knee arthroplasty. Clinical Indicators: 09/28 consult: Acute hypoxic respiratory failure, postoperative, expected outcome, secondary to suspected atelectasis, pain 09/28 Pulm consult: Acute hypoxic respiratory failure, likely due to postop atelectatic changes lung bases. Patient is known to have chronic COPD and is currently on Dilaudid. No signs of any hypoventilation or respiratory compromise at this point. He is currently on 2 L of O2 nasal cannula. 09/29 Progress note: Acute hypoxic respiratory failure, postoperative, expected outcome, secondary to suspected atelectasis, pain, Chronic elevation of right hemidiaphragm reported per chest Xray. - 09/29/2024 pain better controlled today. Chest x-ray performed yesterday reported chronic changes without evidence for acute process. Chronic elevation of the right hemidiaphragm. medial right basilar linear scarring and/or atelectasis. patient reports he has not been doing his incentive spirometer every hour. incentive spirometer up to 1500. Denies chest pain, palpitations or increase in shortness of breath. Maintaining O2 sats of 90 to 94% on 2 L nasal cannula. 09/[address] Chavez: Acute hypoxic respiratory failure, likely due to postop atelectatic changes lung bases is documented in the Pulmonary consult on 09/28/24. Additional clarification is requested regarding the relationship, if any, that exists between the diagnosis and the procedure. [ x ] Atelectasis is not clinically significant and not a complication Treatment: Supplemental O2, Incentive Spirometer, Dilaudid. Please clarify the documentation related to Acute hypoxic respiratory failure, if known: [ x] Patient was weaned from mechanical ventilation in an expected timeframe following the procedure and Acute hypoxic respiratory failure has been ruled out. [ ] Acute hypoxic respiratory failure clinically present and is a complication of the surgical procedure [ ] Acute hypoxic respiratory failure is clinically present and is an expected outcome of the patients procedure [ ] Other please specify MTDD
== END 2024-09-29 15:54 | disposition home health service (06) | DRG 470 ==
LOC: OR 10:59 → 4SSUR 11:00 → OR 11:00 → 4SSUR 16:50
PROVIDERS: ADMIT Orthopaedic Surgery; ATTEND Orthopaedic Surgery
PROC: 3E0T3BZ Introduction of Anesthetic Agent into Peripheral Nerves and Plexi, Percutaneous Approach (ICD-10-PCS; 2024-09-27)
PROC: 0SRC0J9 Replacement of Right Knee Joint with Synthetic Substitute, Cemented, Open Approach (ICD-10-PCS; principal; 2024-09-27 12:30)
DX: M17.11 Unilateral primary osteoarthritis, right knee (principal); J98.6 Disorders of diaphragm; M06.9 Rheumatoid arthritis, unspecified; J44.9 Chronic obstructive pulmonary disease, unspecified; F31.9 Bipolar disorder, unspecified; E03.9 Hypothyroidism, unspecified; E66.9 Obesity, unspecified; I10 Essential (primary) hypertension; J98.11 Atelectasis; E78.5 Hyperlipidemia, unspecified; Z68.29 Body mass index [BMI] 29.0-29.9, adult; F17.210 Nicotine dependence, cigarettes, uncomplicated; K21.9 Gastro-esophageal reflux disease without esophagitis; Z79.51 Long term (current) use of inhaled steroids; Z79.890 Hormone replacement therapy; Z79.899 Other long term (current) drug therapy; Z90.79 Acquired absence of other genital organ(s); Z98.84 Bariatric surgery status; Z87.19 Personal history of other diseases of the digestive system; Z88.8 Allergy status to other drugs, medicaments and biological substances
CPT/HCPCS: 64448; 64474; 71045; 85025; 94002; 94640